=== PATIENT | female | born 1970 | race American Indian/Alaskan Native ===

== ENCOUNTER 2016-12-08 10:08 | Inpatient (IN) | payer SELFPAY ==
[2016-12-08 10:58] LABS: Bilirubin,Urine NEG (Negative); Blood,Urine LG (Negative); Ketones,Urine NEG (Negative); Leukocyte Esterase,Urine NEG (Negative); Nitrite,Urine NEG (Negative); Urobilinogen,Urine < 2.0 mg/dL (<2.0)
[2016-12-08 10:59] LABS: RBC,Urine > 182.0 /HPF (0.0-6.0)
[2016-12-08 11:22] LABS: Eosinophils % (Auto) 6.4 % (0.0-4.3); Mean Corpuscular HGB Conc 29 % (30-34); Platelet Count 374 K/mm3 (140-440); Red Blood Count 4.57 M/mm3 (3.65-5.03); White Blood Count 5.7 K/mm3 (4.5-11.0)
[2016-12-08 11:26] LABS: Hemoglobin 7.5 gm/dl (10.1-14.3); Mean Corpuscular Hemoglobin 16 pg (28-32); Mean Corpuscular Volume 57 fl (79-97); Red Cell Distribution Width 21.7 % (13.2-15.2)
[2016-12-08] MEDS ORDERED: NORCO 5/325 PO ONE (21:07)
[2016-12-08] MEDS ORDERED: TORADOL IV ONE (21:07)
--- NOTE | 2016-12-08 21:55 | Ultrasound Report ---
FINAL REPORT PROCEDURE: US PELVIC LIMITED TECHNIQUE: Real-time transabdominal sonography in multiple planes of pelvis for a focused or limited evaluation was performed with image documentation. CPT 14929 HISTORY: vag bleeding COMPARISON: No prior studies are available for comparison. FINDINGS: Uterus measures 12 x 6.5 x 8.5 centimeters. Endometrium measures 11 millimeters. There is no endometrial fluid. There is a left posterior fibroid measuring 4.3 centimeters. The ovaries are not identified. There is no free pelvic fluid. IMPRESSION: Uterine fibroid. Ovaries are not seen. There is no free pelvic fluid.
--- NOTE | 2016-12-08 22:03 | Ultrasound Report ---
FINAL REPORT PROCEDURE: US TRANSVAGINAL TECHNIQUE: Real-time transvaginal sonography in multiple planes of the pelvis was performed with image documentation. This examination was performed without Doppler. Vascular abnormalities, including ovarian torsion, will not be detectable without Doppler evaluation. CPT 56872 HISTORY: vag bleeding COMPARISON: No prior studies are available for comparison. FINDINGS: UTERUS Size: 12 x 6.5 x 8.5 cm. Endometrial thickness: 11 mm. Orientation: anteverted. Cervix: Normal. Fibroids/masses: Posterior left lateral fibroid measuring 4.3 centimeters.. Ovaries are not identified. Pelvic fluid: None. Other: None. IMPRESSION: Uterine fibroid as described. Ovaries are not seen. There is no free fluid..
[2016-12-08] MEDS ORDERED: NACL 0.9% 500 ML 500 ML IV ONE (22:52)
[2016-12-08] MEDS ORDERED: VIBRAMYCIN PO ONE (22:59)
--- NOTE | 2016-12-08 23:01 | Emergency Department Report ---
ED Female HPI - General Chief complaint: Vaginal Bleeding Stated complaint: HEADACHE/FATIGUE Time Seen by Provider: 12/08/16 20:41 Source: patient Mode of arrival: Ambulatory Limitations: No Limitations - History of Present Illness Initial comments: 46-year-old female with past med history of iron deficiency anemia requiring blood transfusions presents to Hospital complaints of vaginal bleeding 15 days. He was initially spotting then it improved and then increased again over the last several days. Patient used 6 pads today. She complains of mild cramping lower abdominal pain. Patient also complains of symptoms of a sinus infection. Patient states she's had sinus infections in the past and this is similar. She complains of pain to the right side of her forehead, face, extending to her teeth in the ear. Symptoms are moderate, constant, worse with palpation. Postnasal drainage worse with lying supine. No fever report. Patient also complains of light sensitivity. Denies history of migraine. - Related Data Home Medications Medication Instructions Recorded Confirmed Last Taken No Known Home Medications [No 12/09/16 12/09/16 Unknown Reported Home Medications] Allergies Allergy/AdvReac Type Severity Reaction Status Date / Time amoxicillin [Amoxicillin] Allergy Rash Verified 12/19/15 17:48 ED Review of Systems ROS: Stated complaint: HEADACHE/FATIGUE Other details as noted in HPI Comment: All other systems reviewed and negative Other: Constitutional: No fevers chills or weight loss Eyes: No eye pain visual changes or discharge ENT: as per hpi Neck: Denies pain Respiratory: Denies cough wheezing Cardiovascular: Denies chest pain, palpitations, syncope GI: Denies nausea, vomiting, diarrhea : Denies dysuria Musculoskeletal: Denies back pain, joint swelling Skin: Denies rash, lesions, erythema Neurologic: Denies numbness, weakness Psychiatric: Denies suicidal ideation, hallucinations ED Past Medical Hx - Past Medical History Hx Hypertension: No Hx Heart Attack/AMI: No Hx Diabetes: No Hx Liver Disease: No Hx Renal Disease: No Hx Seizures: No Hx Asthma: Yes Hx COPD: No Hx Tuberculosis: No Additional medical history: anemia with hx. of blood transfusions, Vertigo - Surgical History Hx Appendectomy: Yes Additional Surgical History: x 2, Right middle finger, D&C - Social History Smoking Status: Former Smoker Substance Use Type: Alcohol - Medications Home Medications: Home Medications Medication Instructions Recorded Confirmed Last Taken Type No Known Home Medications [No 12/09/16 12/09/16 Unknown History Reported Home Medications] ED Physical Exam - General Limitations: No Limitations - Other Other exam information: General: No limitations, patient is alert in no acute distress Head exam: Atraumatic, normocephalic Eyes exam: Normal appearance, pupils equal reactive to light, extraocular movements intact ENT: Moist mucous membrane, normal oropharynx. Right frontal and maxillary sinus tenderness. Neck exam: Normal inspection, full range of motion, no meningismus nontender Respiratory exam: Clear to auscultation bilateral, no wheezes, rales, crackles Cardiovascular: Normal rate and rhythm, normal heart sounds Abdomen: Soft, nondistended, mild suprapubic discomfort, with normal bowel sounds, no rebound, or guarding Extremity: Full range of motion normal inspection no deformity Back: Normal Inspection, full range of motion, no tenderness Neurologic: Alert, oriented x3, cranial nerves intact, no motor or sensory deficit Psychiatric: normal affect, normal mood Skin: Warm, dry, intact ED Course Vital Signs 12/08/16 12/08/16 12/08/16 10:21 21:05 21:46 Temperature 98.5 F Pulse Rate 83 72 Respiratory 16 12 20 Rate Blood Pressure 169/90 O2 Sat by Pulse 100 100 Oximetry 12/08/16 12/08/16 12/08/16 22:00 22:12 22:14 Temperature Pulse Rate 72 Respiratory 21 18 18 Rate Blood Pressure 160/79 O2 Sat by Pulse 100 Oximetry 12/08/16 12/08/16 12/08/16 22:30 23:00 23:30 Temperature Pulse Rate 70 68 74 Respiratory 18 18 15 Rate Blood Pressure 132/64 124/61 132/66 O2 Sat by Pulse 100 100 100 Oximetry 12/09/16 12/09/16 00:00 00:33 Temperature Pulse Rate 71 Respiratory 14 18 Rate Blood Pressure 123/63 O2 Sat by Pulse 100 100 Oximetry - Reevaluation(s) Reevaluation #1: 12/09/16 01:02 Pain improved with Toradol and [place] - Consultations Consultation #1: 12/08/16 22:[address] Skye Costa consulted. Bridger romero pt ED Medical Decision Making - Lab Data Result diagrams: 12/08/16 11:10 Lab Results 02/10/17 02/10/17 02/10/17 Range/Units 10:40 11:10 11:10 WBC 5.7 (4.5-11.0) K/mm3 RBC 4.57 (3.65-5.03) M/mm3 Hgb 7.5 L (10.1-14.3) gm/dl Hct 26.0 L (30.3-42.9) % MCV 57 L (79-97) fl MCH 16 L (28-32) pg MCHC 29 L (30-34) % RDW 21.7 H (13.2-15.2) % Plt Count 374 (140-440) K/mm3 Lymph % (Auto) 43.4 H (13.4-35.0) % [place] % (Auto) 6.5 (0.0-7.3) % Eos % (Auto) 6.4 H (0.0-4.3) % Baso % (Auto) 1.0 (0.0-1.8) % Lymph # 2.5 (1.2-5.4) K/mm3 [place] # 0.4 (0.0-0.8) K/mm3 Eos # 0.4 (0.0-0.4) K/mm3 Baso # 0.1 (0.0-0.1) K/mm3 Seg Neutrophils % 42.7 (40.0-70.0) % Seg Neutrophils # 2.5 (1.8-7.7) K/mm3 Iron (37-170) ug/dL TIBC (250-450) mcg/dL % Saturation % Transferrin (192-382) mg/dl HCG, Quant < 2 (0-4) mIU/mL Urine Color Yellow (Yellow) Urine Turbidity Cloudy (Clear) Urine pH 7.0 (5.0-7.0) Ur Specific [place] 1.019 (1.003-1.030) Urine Protein 30 mg/dl (Negative) mg/dL Urine Glucose (UA) Neg (Negative) mg/dL Urine Ketones Neg (Negative) mg/dL Urine Blood Lg (Negative) Urine Nitrite Neg (Negative) Urine Bilirubin Neg (Negative) Urine Urobilinogen < 2.0 (<2.0) mg/dL Ur Leukocyte Esterase Neg (Negative) Urine WBC (Auto) 1.0 (0.0-6.0) /HPF Urine RBC (Auto) > 182.0 (0.0-6.0) /HPF U Epithel Cells (Auto) 1.0 (0-13.0) /HPF Blood Type Antibody Screen Crossmatch 12/08/16 12/08/16 Range/Units 11:10 11:10 WBC (4.5-11.0) K/mm3 RBC (3.65-5.03) M/mm3 Hgb (10.1-14.3) gm/dl Hct (30.3-42.9) % MCV (79-97) fl MCH (28-32) pg MCHC (30-34) % RDW (13.2-15.2) % Plt Count (140-440) K/mm3 Lymph % (Auto) (13.4-35.0) % [place] % (Auto) (0.0-7.3) % Eos % (Auto) (0.0-4.3) % Baso % (Auto) (0.0-1.8) % Lymph # (1.2-5.4) K/mm3 [place] # (0.0-0.8) K/mm3 Eos # (0.0-0.4) K/mm3 Baso # (0.0-0.1) K/mm3 Seg Neutrophils % (40.0-70.0) % Seg Neutrophils # (1.8-7.7) K/mm3 Iron 13 L (37-170) ug/dL TIBC 466 H (250-450) mcg/dL % Saturation 2.79 % Transferrin 372 (192-382) mg/dl HCG, Quant (0-4) mIU/mL Urine Color (Yellow) Urine Turbidity (Clear) Urine pH (5.0-7.0) Ur Specific [place] (1.003-1.030) Urine Protein (Negative) mg/dL Urine Glucose (UA) (Negative) mg/dL Urine Ketones (Negative) mg/dL Urine Blood (Negative) Urine Nitrite (Negative) Urine Bilirubin (Negative) Urine Urobilinogen (<2.0) mg/dL Ur Leukocyte Esterase (Negative) Urine WBC (Auto) (0.0-6.0) /HPF Urine RBC (Auto) (0.0-6.0) /HPF U Epithel Cells (Auto) (0-13.0) /HPF Blood Type O POSITIVE Antibody Screen Negative Crossmatch See Detail - Radiology Data Radiology results: report reviewed (us transvag/pelvic: uterin fibroid) - Medical Decision Making Patient requires admission to the hospital and blood transfusion for symptomatic anemia. 1 unit ordered. LINER MACHINE OPERATOR HELPER has been consulted and will evaluate patient for admission. patient also has right-sided facial tenderness or be treated for sinusitis (Doxycline.) Patient may also have migraines but headache has been intermittent for a week and worse with pressure to his sinuses and she complains of sinus drainage. - Differential Diagnosis fibroids, menorrhagia, anemia, , dental caries, sinusitis, migrain Critical Care Time: No Critical care attestation.: If time is entered above; I have spent that time in minutes in the direct care of this critically ill patient, excluding procedure time. ED Disposition Clinical Impression: Vaginal bleeding, Iron deficiency anemia, Symptomatic anemia, Sinusitis, Uterine fibroid Disposition: OP ADMITTED IP TO THIS HOSP Is pt being admited?: Yes Condition: Stable Time of Disposition: 22:57 (Dr Hanson/hosp)
[2016-12-09] MEDS ORDERED: VIBRAMYCIN ONE (00:07)
[2016-12-09] MEDS ORDERED: DULCOLAX PR PRN (01:58)
[2016-12-09] MEDS ORDERED: TYLENOL PO PRN (01:58)
[2016-12-09] MEDS ORDERED: MILK OF MAGNESIA PO PRN (01:58)
[2016-12-09] MEDS ORDERED: NACL 0.9% 1000 ML 1,000 ML IV SCH (02:00)
--- NOTE | 2016-12-09 02:05 | History and Physical Report ---
History of Present Illness Date of examination: 12/09/16 Date of admission: 12/08/16 23:14 Chief complaint: vaginal bleeding History of present illness: This is a 46-year-old female with past med history of iron deficiency anemia requiring blood transfusions presents to Hospital complaints of vaginal bleeding 15 days with associated lightheadedness. SHe was initially spotting then it improved and then her flow increased again over the last several days. Patient used 6 pads today. She has associated mild cramping lower abdominal pain. Patient also complains of symptoms of a sinus infection. Patient states she's had sinus infections in the past and this is similar. She complains of pain to the right side of her forehead, face, extending to her teeth in the ear. Symptoms are moderate, constant, worse with palpation. Postnasal drainage worse with lying supine. No fever report. Patient also complains of light sensitivity. Denies history of migraine. Past medical History: None Past surgical History: Status post 2, appendectomy Social History: Lives with family, denies any smoking, drinking and elicit drug abuse. Family History: Significant for hypertension Review of System: Constitutional: no fever, no chills, no weight loss Ears, eyes, nose, mouth and throat: + nasal congestion, + nasal discharge, + sinus pressure, no vision change, no red eye. Neck: No neck pain or rigidity. Cardiovascular: No chest pain, no orthopnea, no palpitations, no leg swelling Respiratory: No shortness of breath, no cough, no congestion, no wheezing Gastrointestinal: + crampy lower abdominal pain, no nausea, no vomiting Genitourinary : no dysuria, no hematuria Musculoskeletal: no joint swelling or muscle ache Integumentary: no rash, no pruritis Neurological: no parathesias, no numbness, no tingling Endocrine: no cold or heat intolerance, no polyuria or polydipsia Hematologic/Lymphatic: no easy bruising, no gland swelling Allergic/Immunologic: no urticaria, no angioedema. Medications and Allergies Allergies Allergy/AdvReac Type Severity Reaction Status Date / Time amoxicillin [Amoxicillin] Allergy Rash Verified 12/19/15 17:48 Home Medications Medication Instructions Recorded Confirmed Last Taken Type Azithromycin [Zithromax TAB] 500 mg PO QDAY #5 tablet 12/09/16 Unknown Rx Ferrous Sulfate [Feosol 325 MG tab] 325 mg PO BID #60 tablet 12/09/16 Unknown Rx traMADol [Ultram] 50 mg PO Q6HR PRN #20 tablet 12/09/16 Unknown Rx Exam - Physical Exam Narrative exam: GENERAL: This is well-developed obese -[place] female lying on bed appeared to be in no discomfort. HEENT: Normocephalic. Atraumatic. Extraocular motions are intact. No conjunctival congestion or icterus. Patient has moist mucous membranes. External auditory canal and nares patent bilaterally. Right maxillary tenderness. NECK: Supple. Trachea midline. No JVD, thyromagaly or lymphadenopathy. CHEST/LUNGS: Clear to auscultated bilaterally. There is no respiratory distress noted, breathing nonlabored. No wheezes crackles or rhonchi. HEART/CARDIOVASCULAR: Regular in rate and rhythm. PMI at the apex. There is no gallop rub or murmur. ABDOMEN: Abdomen is soft, + pelvic tenderness. Patient has normal bowel sounds. There is no abdominal distention. No organomagaly or rigidity. SKIN: There is no rash, no erythrema. There is no diaphoresis. Warm and dry. NEUROLOGY: The patient is awake, alert, and oriented. The patient is cooperative. The patient has normal speech. No focal motor deficit. MUSCULOSKELETAL: No joint effusion or tenderness. Muscle strength equal bilaterally. No muscle wasting. EXTRIMITY: No edema, cyanosis or clubbing. PSYCH: No depression or anxiety noted. Cooperative. - Constitutional Vitals: Temp Pulse Resp BP Pulse Ox 98.5 F 69 13 132/64 90 12/08/16 10:21 12/09/16 01:00 12/09/16 01:00 12/09/16 01:32 12/09/16 01:32 Results - Labs CBC & Chem 7: 12/09/16 10:00 Labs: Laboratory Last Values WBC 5.7 K/mm3 (4.5-11.0) 12/08/16 11:10 RBC 4.57 M/mm3 (3.65-5.03) 12/08/16 11:10 Hgb 7.5 gm/dl (10.1-14.3) L 12/08/16 11:10 Hct 26.0 % (30.3-42.9) L 12/08/16 11:10 MCV 57 fl (79-97) L 12/08/16 11:10 MCH 16 pg (28-32) L 12/08/16 11:10 MCHC 29 % (30-34) L 12/08/16 11:10 RDW 21.7 % (13.2-15.2) H 12/08/16 11:10 Plt Count 374 K/mm3 (140-440) 12/08/16 11:10 Lymph % (Auto) 43.4 % (13.4-35.0) H 12/08/16 11:10 [place] % (Auto) 6.5 % (0.0-7.3) 12/08/16 11:10 Eos % (Auto) 6.4 % (0.0-4.3) H 12/08/16 11:10 Baso % (Auto) 1.0 % (0.0-1.8) 12/08/16 11:10 Lymph # 2.5 K/mm3 (1.2-5.4) 12/08/16 11:10 [place] # 0.4 K/mm3 (0.0-0.8) 12/08/16 11:10 Eos # 0.4 K/mm3 (0.0-0.4) 12/08/16 11:10 Baso # 0.1 K/mm3 (0.0-0.1) 12/08/16 11:10 Seg Neutrophils % 42.7 % (40.0-70.0) 12/08/16 11:10 Seg Neutrophils # 2.5 K/mm3 (1.8-7.7) 12/08/16 11:10 Iron 13 ug/dL (37-170) L 12/08/16 11:10 TIBC 466 mcg/dL (250-450) H 12/08/16 11:10 % Saturation 2.79 % 12/08/16 11:10 Transferrin 372 mg/dl (192-382) 12/08/16 11:10 HCG, Quant < 2 mIU/mL (0-4) 12/08/16 11:10 Urine Color Yellow (Yellow) 12/08/16 10:40 Urine Turbidity Cloudy (Clear) 12/08/16 10:40 Urine pH 7.0 (5.0-7.0) 12/08/16 10:40 Ur Specific [place] 1.019 (1.003-1.030) 12/08/16 10:40 Urine Protein 30 mg/dl mg/dL (Negative) 12/08/16 10:40 Urine Glucose (UA) Neg mg/dL (Negative) 12/08/16 10:40 Urine Ketones Neg mg/dL (Negative) 12/08/16 10:40 Urine Blood Lg (Negative) 12/08/16 10:40 Urine Nitrite Neg (Negative) 12/08/16 10:40 Urine Bilirubin Neg (Negative) 12/08/16 10:40 Urine Urobilinogen < 2.0 mg/dL (<2.0) 12/08/16 10:40 Ur Leukocyte Esterase Neg (Negative) 12/08/16 10:40 Urine WBC (Auto) 1.0 /HPF (0.0-6.0) 12/08/16 10:40 Urine RBC (Auto) > 182.0 /HPF (0.0-6.0) 12/08/16 10:40 U Epithel Cells (Auto) 1.0 /HPF (0-13.0) 12/08/16 10:40 Blood Type O POSITIVE 12/08/16 11:10 Antibody Screen Negative 12/08/16 11:10 Crossmatch See Detail 12/08/16 11:10 Assessment and Plan Assessment and plan: Severe symptomatic anemia due to menorrhagia Menorrhagia with fibroid uterus Right maxillary sinusitis Morbid obesity due to excessive caloric Plan: Admit to medicine Consult FINISH INSPECTOR transfuse 1 unit of packed RBC Monitor H&H Placed on Zithromax for sinusitis Supportive care It took me about 45 minutes for initial care of this patient including history and physical, reviewing initial lab results and ER documents, placing admission orders, bedside counseling and coordination of care. Advance Directives: Yes VTE prophylaxis?: Mechanical Plan of care discussed with patient/family: Yes
[2016-12-09] MEDS: ZOFRAN IV PRN ×2 (02:53→10:32)
[2016-12-09] MEDS: NORCO 5/325 PO PRN ×2 (04:43→12:46)
[2016-12-09] MEDS ORDERED: NACL 0.9% 500 ML 500 ML IV ONE (05:00)
[2016-12-09] MEDS ORDERED: FEOSOL PO SCH (10:00)
[2016-12-09] MEDS ORDERED: LOVENOX SUB-Q SCH (10:00)
[2016-12-09] MEDS ORDERED: COLACE PO SCH (10:00)
[2016-12-09] MEDS ORDERED: PEPCID PO SCH (10:00)
[2016-12-09] MEDS ORDERED: ZITHROMAX PO SCH (10:00)
[2016-12-09 10:29] LABS: Eosinophils % (Auto) 6.6 % (0.0-4.3); Mean Corpuscular HGB Conc 29 % (30-34); Platelet Count 343 K/mm3 (140-440); Red Blood Count 4.51 M/mm3 (3.65-5.03); White Blood Count 6.5 K/mm3 (4.5-11.0)
[2016-12-09 10:55] LABS: Hematocrit 26.7 % (30.3-42.9); Hemoglobin 7.8 gm/dl (10.1-14.3); Mean Corpuscular Hemoglobin 17 pg (28-32); Mean Corpuscular Volume 59 fl (79-97); Red Cell Distribution Width 23.7 % (13.2-15.2)
--- NOTE | 2016-12-09 12:42 | Discharge Summary ---
Providers - Providers Date of Admission: 12/08/16 23:14 Date of discharge: 12/09/16 Attending physician: BLANQUITA MARIEE MD Primary care physician: [employer] [employer] Hospitalization Reason for admission: vaginal bleed Condition: Stable Hospital course: Patient is a 46 yo LMP 15 days ago presented to the ER with for lightheadness dizziness and some sinus issues. She is admitted to medicine service for blood transusion for chronic anemia. She reports large prolonged period and has hx of heavy bleeding without seeing a physician in 3 years. She has had novausure in the past and has not had a fibroid in the past to her knowledge. she changes a pad every 1 hr on period and this period to date has lasted longer for a duration of 15 days. She is not taking iron supplements and she has had transfusions in her past. She denies any medical problems and denies any medication new or old that she is taking. She also reports a sinus infection similar to one in the past before. She reports frontal headache. A specimen 58 year denies any dental problems. She reports worsening postnasal drainage at night especially when lying supine. Her headache she relates a history of intensity with sensitivity to lights. She denies any history of migraines. She was started on antibiotics. She did tolerate a blood transfusion. She was sent by PLACEMENT MANAGER in the hospital with recommendation for Depo-Provera, IUD, hysterectomy (the patient states is a curse of her family would not do a hysterectomy)the patient will rather have a follow-up with them in 6 weeks for further evaluation. She does understand that she needs an ultrasound in 6 weeks to ensure no progression of the solitary fibroid noted on ultrasound. Recommendation to increase her leafy vegetable intake vitamin C and iron. And on maintenance to continue Pap smears every 3-5 years. Discharge diagnosis Severe symptomatic anemia due to menorrhagia Menorrhagia with fibroid uterus Right maxillary sinusitis Morbid obesity due to excessive caloric Disposition: DISCHARGED TO HOME OR SELFCARE Time spent for discharge: 35 mins Core Measure Documentation - Palliative Care Palliative Care/ Comfort Measures: Not Applicable - Core Measures Any of the following diagnoses?: none - VTE Discharge Requirements Deep Vein Thrombosis/Pulmonary Embolism Present on Admission: No Exam - Physical Exam Narrative exam: VITAL SIGNS: Reviewed. GENERAL: The patient appeared well nourished and normally developed. Vital signs as documented. HEAD: No signs of head trauma. EYES: Pupils are equal. Extraocular motions intact. EARS: Hearing grossly intact. MOUTH: Oropharynx is normal. NECK: No adenopathy, no JVD. CHEST: Chest with clear breath sounds bilaterally. No wheezes, rales, or rhonchi. CARDIAC: Regular rate and rhythm. S1 and S2, without murmurs, gallops, or rubs. VASCULAR: No Edema. Peripheral pulses normal and equal in all extremities. ABDOMEN: GravidUs abdomen Soft, without detectable tenderness. No rebound or guarding, and no masses palpated. Bowel Sounds normal. MUSCULOSKELETAL: Good range of motion of all major joints. Extremities without clubbing, cyanosis or edema. NEUROLOGIC EXAM: Alert and oriented x 3. No focal sensory or strength deficits. Speech normal. Follows commands. PSYCHIATRIC: Mood normal. SKIN: No rash or lesions. - Constitutional Vitals: Temp Pulse Resp BP Pulse Ox 97.9 F 73 18 107/58 100 12/09/16 06:35 12/09/16 06:35 12/09/16 06:35 12/09/16 06:35 12/09/16 06:35 Plan Activity: advance as tolerated Diet: regular Additional Instructions: Must get an Pelvic ultrasound in 6 weeks Follow up with: MAKAYLA PHILLIP MD [Primary Care Provider] - 7 Days KATEY FOX MD [Referring] - 7 Days Forms: Work/School Release Form Prescriptions: Azithromycin [Zithromax TAB] 500 mg PO QDAY #5 tablet Ferrous Sulfate [Feosol 325 MG tab] 325 mg PO BID #60 tablet traMADol [Ultram] 50 mg PO Q6HR PRN #20 tablet PRN Reason: Pain
--- NOTE | 2016-12-09 12:48 | Consultation ---
History of Present Illness Consult date: 12/09/16 Reason for consult: menorrhagia History of present illness: 46 yo LMP 15 days ago here for lightheadness dizziness and some sinus issues. She is admitted to medicine service for blood transusion for chronic anemia. She reports stopping period and has hx of heavy bleeding without seeing a physician in 3 years. She has had novausure in the past and has not had a fibroid in the past to her knowledge. she changes a pad every 1 hr on period and this period to date has lasted longer for a duration of 15 days. She is not taking iron supplements and she ahs had transfusions in her past. She denies any medical problems and denies any medication new or old that she is taking. Past History Past Medical History: no pertinent history Past Surgical History: section (x3) [employer] History: chlamydia, fibroids, gonorrhea, herpes Family/Genetic History: diabetes, heart disease, hypertension Social history: no significant social history, single - Obstetrical History : 4 Medications and Allergies Allergies Allergy/AdvReac Type Severity Reaction Status Date / Time amoxicillin [Amoxicillin] Allergy Rash Verified 12/19/15 17:48 Home Medications Medication Instructions Recorded Confirmed Last Taken Type Azithromycin [Zithromax TAB] 500 mg PO QDAY #5 tablet 12/09/16 Unknown Rx Ferrous Sulfate [Feosol 325 MG tab] 325 mg PO BID #60 tablet 12/09/16 Unknown Rx Active Meds: Active Medications Acetaminophen (Tylenol) 650 mg PO Q4H PRN PRN Reason: Pain MILD(1-3)/Fever >100.5/YATES Last Admin: 12/09/16 08:28 Dose: 650 mg Acetaminophen/Hydrocodone Bitart ([place] 5/325) 2 each PO Q6H PRN PRN Reason: Pain, Moderate (4-6) Last Admin: 12/09/16 04:43 Dose: 1 each Azithromycin (Zithromax) 500 mg PO QDAY [facility] Last Admin: 12/09/16 09:12 Dose: 500 mg Bisacodyl (Dulcolax) 10 mg [place] QDAY PRN PRN Reason: Constipation unrelieved by MOM Docusate Sodium (Colace) 100 mg PO BID [facility] Last Admin: 12/09/16 09:12 Dose: 100 mg Famotidine (Pepcid) 20 mg PO BID [facility] Last Admin: 12/09/16 09:13 Dose: 20 mg Ferrous Sulfate (Feosol) 325 mg PO BID [facility] Last Admin: 12/09/16 09:13 Dose: 325 mg Sodium Chloride (Nacl 0.9% 1000 Ml) 1,000 mls @ 100 mls/hr IV DIRECT [facility] Last Admin: 12/09/16 03:13 Dose: 100 mls/hr Magnesium Hydroxide (Milk Of Magnesia) 30 ml PO Q4H PRN PRN Reason: Constipation Ondansetron HCl (Zofran) 4 mg IV Q8H PRN PRN Reason: N/V unrelieved by Reglan Last Admin: 12/09/16 10:32 Dose: 4 mg Review of Systems All systems: negative Constitutional: fatigue, weakness, no weight loss, no fever, no chills, no sweats Eyes: deferred Ears, nose, mouth and throat: deferred Cardiovascular: lightheadedness, no chest pain, no orthopnea, no palpitations, no edema, no syncope Respiratory: no shortness of breath, no wheezing Breasts: deferred Gastrointestinal: no abdominal pain, no nausea, no vomiting, no diarrhea, no constipation Genitourinary: normal appearance, vaginal bleeding (decreased and not currently bleeding ), no vaginal discharge, no pelvic pain, no genital sores Integumentary: deferred Neurological: weakness, syncope - Vital Signs Vital signs: Vital Signs Temp Pulse Resp BP Pulse Ox 98.5 F 83 16 169/90 100 12/08/16 10:21 12/08/16 10:21 12/08/16 10:21 12/08/16 10:21 12/08/16 10:21 Temp Pulse Resp BP Pulse Ox 97.9 F 73 18 107/58 100 12/09/16 06:35 12/09/16 06:35 12/09/16 06:35 12/09/16 06:35 12/09/16 06:35 - Physical Exam Breasts: Positive: normal Cardiovascular: Regular rate, Normal S1, Normal S2 Lungs: Positive: Clear to auscultation, Normal air movement Abdomen: Positive: normal appearance, soft, normal bowel sounds. Negative: distention, tenderness, guarding, hernia Genitourinary (Female): Positive: normal external genitalia, normal perenium Vulva: both: normal Vagina: Positive: normal moisture. Negative: discharge, ulceration Cervix: Negative: lesion, discharge Uterus: Positive: enlarged (12 weeks size), nodular Adnexa: both: normal Anus/Rectum: Positive: normal perianal skin Extremities: Positive: normal Deep Tendon Reflex Grade: Normal +2 Results Result Diagrams: 12/09/16 10:00 Abnormal lab results 12/09/16 Range/Units 10:00 Hgb 7.8 L (10.1-14.3) gm/dl Hct 26.7 L (30.3-42.9) % MCV 59 L (79-97) fl MCH 17 L (28-32) pg MCHC 29 L (30-34) % RDW 23.7 H (13.2-15.2) % Lymph % (Auto) 41.3 H (13.4-35.0) % [place] % (Auto) 8.8 H (0.0-7.3) % Eos % (Auto) 6.6 H (0.0-4.3) % All other labs normal. Ultrasound: report reviewed Assessment and Plan A/P HD#1 chronic anemia iron deficient anemia, fibroids 1. Menorrhagia- recommend depo, iud, hysterectiomy 2. Fibroids- hx of no previous fibroids per patient would recommned that she has f/u of US in 6 weeks to 3 months for progression of solitary fibroid 3. Disucssed [place] procedure as patient is adament against hysterectomy " curse on family" for fibroids that are solitary [place] acceptable 4. Increase in leafy veg , iron, vit c 5. discussed routine health maintenance with regular exam needs pap every 3-5 years ( patient reports patp 2 years ago, mammogram annually 6. Needs f/u with assistant hvac mechanic immediately to continue management and treatment
[2016-12-09 13:41] VITALS: BP 114/57
== END 2016-12-09 14:05 | disposition home or self-care (01) | DRG 760 ==
LOC: ED 10:08 → 3A 23:14
PROVIDERS: ADMIT Internal Medicine; ATTEND Internal Medicine
PROC: 30233N1 Transfusion of Nonautologous Red Blood Cells into Peripheral Vein, Percutaneous Approach (ICD-10-PCS; principal; 2016-12-09)
DX: D25.9 Leiomyoma of uterus, unspecified (principal); Z68.41 Body mass index [BMI] 40.0-44.9, adult; N93.9 Abnormal uterine and vaginal bleeding, unspecified; N92.0 Excessive and frequent menstruation with regular cycle; D50.9 Iron deficiency anemia, unspecified; J32.9 Chronic sinusitis, unspecified; E66.01 Morbid (severe) obesity due to excess calories; J45.909 Unspecified asthma, uncomplicated; Z90.49 Acquired absence of other specified parts of digestive tract; Z87.891 Personal history of nicotine dependence; Z82.49 Family history of ischemic heart disease and other diseases of the circulatory system; Z83.3 Family history of diabetes mellitus; Z88.0 Allergy status to penicillin
CPT/HCPCS: 36415; 76830; 76857; 81001; 83550; 84702; 85025; 86850; 86900; 86901; 86920; 96374; J1885; J2405; J7030; J7040; P9016

== ENCOUNTER 2018-04-19 09:00 | Day surgery (SDC) | payer OTHER ==
--- NOTE | 2018-04-19 09:12 | Short Stay Summary ---
Short Stay Documentation Date of service: 04/19/18 Narrative H&P: Pt is a 47yo BF LMP 04/11/18 presents for a Hysteroscopy with D&C. She was unable to tolerate the endometrial biopsy in the office. - History Principal diagnosis: Uterine fibroids; Menorrhagia H&P: obtained from office Past Medical History: anemia, other (asthma) Past Surgical History: appendectomy, Social history: no significant social history - Allergies and Medications Current Medications: Allergies amoxicillin [Amoxicillin] Allergy (Verified 04/17/18 16:04) Rash Home Medications Medication Instructions Recorded Confirmed Last Taken Type traMADol [Ultram] 50 mg PO Q6HR PRN #20 tablet 12/09/16 04/17/18 Unknown Rx Active Medications Gentamicin Sulfate (Garamycin) 200 mg 1.5 mg/kg (200 mg) IV PREOP LESLEY; Protocol Clindamycin HCl (Cleocin 600 Mg/50 Ml) 600 mg in 50 mls @ 100 mls/hr IV PREOP NR; Protocol - Physical exam General appearance: no acute distress Integumentary: no rash HEENT: Atraumatic Lungs: Clear to auscultation Breasts: deferred Heart: Regular rate Gastrointestinal: normal Female Genitourinary: masses Rectal Exam: deferred Extremities: No edema Neurological: Normal gait, Normal speech - Brief post op/procedure progress note Date of procedure: 04/19/18 Pre-op diagnosis: Uterine fibroids Post-op diagnosis: same Procedure: 1. Hysteroscopy 2. Dilatation and curettage Anesthesia: MAC Findings: A 14-16 week size uterus with endometrial adhesions. Scant endometrial tissue obtained. Surgeon: CONRAD FOX Estimated blood loss: minimal Pathology: list (endometrial curettings) Specimen disposition: to lab Condition: stable - Hospital course Hospital course: Unremarkable - Disposition Condition at discharge: Good Disposition: DC-01 TO HOME OR SELFCARE - Discharge Diagnoses (1) Uterine fibroid Status: Acute Qualifiers: Uterine leiomyoma location: intramural, submucous, and subserous Qualified Code(s): D25.1 - Intramural leiomyoma of uterus; D25.0 - Submucous leiomyoma of uterus; D25.2 - Subserosal leiomyoma of uterus Short Stay Discharge Plan Activity: no restrictions Diet: regular Follow up with: MAKAYLA PHILLIP MD [Primary Care Provider] - 7 Days CONRAD FOX MD [Staff Physician] - 14 Days Prescriptions: HYDROcodone/APAP 5-325 [[place] 5/325] 1 each PO Q6HR PRN #20 tablet PRN Reason: Pain
[2018-04-19] MEDS ORDERED: GARAMYCIN IV SCH (09:15)
[2018-04-19] MEDS ORDERED: XYLOCAINE MPF 2% ONE (09:52)
[2018-04-19] MEDS ORDERED: SUBLIMAZE ONE (09:52)
[2018-04-19] MEDS ORDERED: DIPRIVAN 10 MG/ML IV ONE (09:53)
[2018-04-19] MEDS ORDERED: DECADRON ONE (09:57)
[2018-04-19] MEDS ORDERED: ZOFRAN ONE (09:57)
[2018-04-19] MEDS ORDERED: CLEOCIN 600 MG/50 mL 600 MG/50 ML BAG IV NR (10:00)
[2018-04-19] MEDS ORDERED: GARAMYCIN 200 MG in NACL 0.9% 100 ML IV NR (10:00)
[2018-04-19] MEDS ORDERED: ZOFRAN IV PRN (10:28)
[2018-04-19] MEDS ORDERED: DILAUDID IV PRN (10:28)
--- NOTE | 2018-04-19 10:34 | Anesthesia Day of Surgery ---
Anesthesia Day of Surgery - Day of Surgery Patient Examined: Yes Patient H&P Reviewed: Yes Patient is NPO: Yes
--- NOTE | 2018-04-19 10:34 | Anesthesia Consultation ---
Anesthesia Consult and Med Hx Date of service: 04/19/18 - Airway Anesthetic Teeth Evaluation: Good ROM Head & Neck: Adequate Mental/Hyoid Distance: Adequate Mallampati Class: Class II Intubation Access Assessment: Probably Good - Pulmonary Exam CTA: Yes - Cardiac Exam Cardiac Exam: RRR - Pre-Operative Health Status ASA Pre-Surgery Classification: ASA3 Proposed Anesthetic Plan: General - Pulmonary Hx Asthma: Yes (Haven't used meds "in a while") COPD: No Hx Pneumonia: Yes - Cardiovascular System Hx Hypertension: No Hx Heart Attack/AMI: No - Central Nervous System Hx Seizures: No CVA: No Hx Back Pain: Yes Hx Psychiatric Problems: Yes - Endocrine Hx Renal Disease: No Hx Liver Disease: No Hx Hyperthyroidism: No - Hematic Hx Anemia: Yes - Other Systems Hx Alcohol Use: Yes (occas) Hx Cancer: No
[2018-04-19] MEDS ORDERED: VERSED IV NR (11:00)
[2018-04-19] MEDS ORDERED: LACTATED RINGERS 1,000 ML IV SCH ×2 (11:00)
[2018-04-19] MEDS ORDERED: TORADOL ONE (11:30)
[2018-04-19] MEDS ORDERED: NACL 0.9% IR ONE ×2 (11:31→11:32)
--- NOTE | 2018-04-19 11:58 | Operative Report ---
Operative Report Operative Report: PREOPERATIVE DIAGNOSIS: Uterine fibroids POSTOPERATIVE DIAGNOSIS: Same OPERATIVE PROCEDURE: 1. Hysteroscopy 2. Dilatation and curettage. SURGEON: Waqas Costa MD ANESTHESIA: Gen. mask ANESTHESIOLOGIST: Dr. West ESTIMATED BLOOD LOSS: 10 mL FINDINGS: A 14-16 week size uterus with scant endometrial tissue COMPLICATIONS: None COUNTS: Correct x3. PROCEDURE: After the patient was correctly identified as the patient, and after general anesthesia was administered, the patient was prepped and draped in the usual sterile fashion and placed in dorsal lithotomy position. First, the bladder was emptied using a straight catheter. Next, a speculum was placed in the vaginal vault and the anterior lip of the cervix was grasped using a single-tooth tenaculum. The uterus was sounded to 13 cm. The cervical os was sequentially dilated, and the hysteroscope was introduced into the cervical canal. There was noted to be endometrial adhesions. Sharp curettage was used to obtain scant endometrial tissue which was sent to pathology. After all the endometrial tissue was removed, the procedure was considered complete. All instruments were removed from the vagina. The patient tolerated the procedure well and was transferred to the recovery room in stable condition.
[2018-04-19] MEDS ORDERED: NORCO 5/325 PO ONE (13:01)
--- NOTE | 2018-04-19 13:08 | Post Anesthesia Evaluation ---
- Post Anesthesia Evaluation Patient Participated: Yes Airway Patent: Yes Stable Respiratory Function: Yes Nausea/Vomiting: No Temp > 96.8F: Yes Pain Manageable: Yes Adequeate Hydration: Yes Anesthesia Complications: No
[2018-04-19 14:58] VITALS: BP 142/79
== END 2018-04-19 14:05 | disposition home or self-care (01) ==
LOC: OR 09:00
PROVIDERS: ATTEND Obstetrics & Gynecology
DX: D25.9 Leiomyoma of uterus, unspecified (principal); K66.0 Peritoneal adhesions (postprocedural) (postinfection); J45.909 Unspecified asthma, uncomplicated; Z98.890 Other specified postprocedural states; Z88.1 Allergy status to other antibiotic agents
CPT/HCPCS: 58558; 81025; 88305; A4217; J1100; J1170; J1580; J1885; J2250; J2405; J2704; J3010; J7120

== ENCOUNTER 2019-08-21 18:11 | Emergency (ER) | payer SELFPAY ==
--- NOTE | 2019-08-21 19:54 | Emergency Department Report ---
Blank Doc - Documentation Documentation: 49 y/o c/o of vaginal bleeding and clots with pelvic pain. No dysuria. no fever . heavy pressure to pelvic region l. This initial assessment/diagnostic orders/clinical plan/treatment(s) is/are subject to change based on patient's health status, clinical progression and re-assessment by fellow clinical providers in the ED. Further treatment and workup at subsequent clinical providers discretion. Patient/guardians urged not to elope from the ED as their condition may be serious if not clinically assessed and managed. Initial orders include: Labs and US
[2019-08-21] MEDS ORDERED: NORCO 5/325 PO ONE (20:43)
[2019-08-21 22:46] LABS: Bacteria,Urine 1+ /HPF (Negative); Bilirubin,Urine NEG (Negative); Blood,Urine LG (Negative); Color,Urine Amber (Yellow); Mucus,Urine 3+ /HPF
[2019-08-21 23:06] LABS: HCG Qualitative,Urine Negative (Negative)
--- NOTE | 2019-08-21 23:25 | Emergency Department Report ---
ED Female HPI - General Chief complaint: Vaginal Bleeding Stated complaint: CLOTS PASSING/ABD EXTREME PAIN Time Seen by Provider: 08/21/19 19:50 Source: patient Mode of arrival: Ambulatory Limitations: No Limitations - History of Present Illness Initial comments: Reports hx of fibroids. not followed by [facility] since last year MD Complaint: vaginal bleeding -: week(s) Location: suprapubic Radiation: non-radiating Severity: mild Severity scale (0 -10): 2 Quality: cramping Consistency: intermittent Improves with: none Worsens with: none Are you Now?: No Associated Symptoms: vaginal bleeding, other (history chronic back pain). denies: vaginal discharge, abdominal pain, nausea/vomiting, fever/chills, headaches, loss of appetite, dysuria, hematuria, rash, seizure, shortness of breath, syncope, weakness - Related Data Previous Rx's Medication Instructions Recorded Last Taken Type traMADol [Ultram] 50 mg PO Q6HR PRN #20 tablet 12/09/16 Unknown Rx HYDROcodone/APAP 5-325 [[place] 1 each PO Q6HR PRN #20 tablet 04/19/18 Unknown Rx 5/325] Acetaminophen [Acetaminophen TAB] 500 mg PO Q4HR #18 tablet 08/21/19 Unknown Rx Allergies Allergy/AdvReac Type Severity Reaction Status Date / Time amoxicillin [Amoxicillin] Allergy Rash Verified 08/21/19 18:12 ED Review of Systems ROS: Stated complaint: CLOTS PASSING/ABD EXTREME PAIN Other details as noted in HPI Other: GENERAL: No weight change, fatigue, fever, chills, or night sweats SKIN: No changes in skin or hair, no itching, no rashes, no jaundice HEAD: No trauma, headache, or visual changes EYES: No blurriness, tearing, itching, acute visual loss, conjunctival discoloration, or scleral icterus EARS: No hearing loss, tinnitus, vertigo, or earache NOSE: No rhinorrhea, stuffiness, sneezing, itching, or epistaxis MOUTH: No bleeding gums, hoarseness, sore throat, or swelling CARDIAC: No new murmur, chest pain, palpitations, dyspnea on exertion, orthopnea, PND, or edema RESPIRATORY: No shortness of breath, wheeze, cough, sputum production, hemoptysis, pneumonia, asthma, bronchitis, or emphysema GI: No change in appetite, nausea, vomiting, dysphagia, diarrhea, constipation, hematemesis, melena, hematochezia, or abdominal pain URINARY: No frequency, urgency, polyuria, dysuria, hematuria, or incontinence MUSCULOSKELETAL: No muscle weakness, joint stiffness, decrease in range of motion, redness, swelling NEUROLOGIC: No headache, syncope, loss of sensation, numbness, tingling, tremors, weakness, paralysis, seizures HEMATOLOGIC: No anemia, easy bruising, bleeding, petechiae, or purpura ENDOCRINE: No hot or cold intolerance, sweating, polyuria, polydipsia or, polyphagia no thyroid problems PSYCHIATRIC: No change in mood, no anxiety, no depression GENITAL: Female: Vaginal bleeding. pelvic cramping episodic for weeks. No dishcarge ED Past Medical Hx - Past Medical History Previous Medical History?: Yes Hx Hypertension: No Hx Heart Attack/AMI: No Hx Diabetes: No Hx GERD: Yes Hx Liver Disease: No Hx Renal Disease: No Hx Seizures: No Hx Asthma: Yes (Haven't used meds "in a while") Hx COPD: No Hx Tuberculosis: No Additional medical history: anemia with hx. of blood transfusions, Vertigo - Surgical History Past Surgical History?: Yes Hx Appendectomy: Yes Additional Surgical History: x 2, Right middle finger, D&C, Tubal Ligation - Social History Smoking Status: Never Smoker Substance Use Type: None - Medications Home Medications: Home Medications Medication Instructions Recorded Confirmed Last Taken Type traMADol [Ultram] 50 mg PO Q6HR PRN #20 tablet 12/09/16 04/17/18 Unknown Rx HYDROcodone/APAP 5-325 [[place] 1 each PO Q6HR PRN #20 tablet 04/19/18 Unknown Rx 5/325] Acetaminophen [Acetaminophen TAB] 500 mg PO Q4HR #18 tablet 08/21/19 Unknown Rx ED Physical Exam - General Limitations: No Limitations - Other Other exam information: GENERAL: Patient in no acute distress HEAD: Normocephalic, atraumatic EYES: PERRLA, EOM intact, no scleral icterus, no conjunctival hemorrhage, visual whitt and acuity wnl NOSE: No tenderness, discharge, sinus tenderness MOUTH: No erythema, bleeding, exudate HEART: Regular rate and rhythm, no murmur, S1-S2 are auscultated, no edema, pulses are symmetric LUNGS: No respiratory distress. Bilateral breath sounds, No tachypnea, No retractions, No wheezing, rales, rhonchi ABDOMEN: Normal bowel sounds, abdomen soft, no tenderness, no rebound, no guarding, no distention, no masses, no CVA tenderness MUSCULOSKELETAL: Normal joint range of motion, no redness, no swelling, no tenderness NEUROLOGIC: GCS 15, Alert and Oriented x3, Cranial nerves intact, normal sensation, normal strength, no cerebellar deficit, NIHSS 0 SKIN: Skin is warm and dry, no wounds, no rashes ED Course Vital Signs 08/21/19 19:08 Temperature 98.4 F Pulse Rate 109 H Respiratory 20 Rate Blood Pressure 195/102 O2 Sat by Pulse 100 Oximetry ED Medical Decision Making - Lab Data Laboratory Results - last 24 hr 08/21/19 21:55 Urine Color Jaci Urine Turbidity Cloudy Urine pH 5.0 Ur Specific [place] 1.028 Urine Protein 100 mg/dl Urine Glucose (UA) Neg Urine Ketones Neg Urine Blood Lg Urine Nitrite Neg Urine Bilirubin Neg Urine Urobilinogen 2.0 Ur Leukocyte Esterase Neg Urine WBC (Auto) 2.0 Urine RBC (Auto) 182.0 U Epithel Cells (Auto) 22.0 H Urine Bacteria (Auto) 1+ Urine Mucus 3+ Urine HCG, Qual Negative - Medical Decision Making Patient comfortable. Reports symptom improvement. Updated with results. Reports noncompliant with antihypertensives. Encouraged to monitor BP and take medications. Plan discharge with outpatient follow up. Return if any worsen ing. Critical care attestation.: If time is entered above; I have spent that time in minutes in the direct care of this critically ill patient, excluding procedure time. ED Disposition Clinical Impression: Dysfunctional uterine bleeding Disposition: TO HOME OR SELFCARE Is pt being admited?: No Condition: Stable Instructions: Dysfunctional Uterine Bleeding (ED) Prescriptions: Acetaminophen [Acetaminophen TAB] 500 mg PO Q4HR #18 tablet Referrals: YANNICK GUTIERREZ DO [Staff Physician] - as needed BRENT VERNON MD [Staff Physician] - 2-3 Days Time of Disposition: 23:23
[2019-08-21 23:39] VITALS: BP 160/92
== END 2019-08-21 23:37 | disposition home or self-care (01) ==
LOC: ED 18:11
DX: N93.8 Other specified abnormal uterine and vaginal bleeding (principal); K21.9 Gastro-esophageal reflux disease without esophagitis; Z90.49 Acquired absence of other specified parts of digestive tract
CPT/HCPCS: 81001; 81025

== ENCOUNTER 2019-09-18 15:05 | Emergency (ER) | payer SELFPAY ==
[2019-09-18] MEDS ORDERED: ASPIRIN 325 MG TAB PO ONE (16:03)
--- NOTE | 2019-09-18 16:04 | Event Note ---
ED Screening Note Date of service: 09/18/19 Time: 16:01 ED Screening Note: 49 y o female presents with left sided chest pain radiating to shouldre and back x recent dx of HTN started meds on 5th This initial assessment/diagnostic orders/clinical plan/treatment(s) is/are subject to change based on patients health status, clinical progression and re- assessment by fellow clinical providers in the ED. Further treatment and workup at subsequent clinical providers discretion. Patient/guardian urged not to elope from the ED as their condition may be serious if not clinically assessed and managed. Initial orders include: labs, ekg, cxr
--- NOTE | 2019-09-18 16:37 | XRay Report ---
CHEST 1 VIEW INDICATION / CLINICAL INFORMATION: Chest Pain. COMPARISON: 12/19/2015 FINDINGS: SUPPORT DEVICES: None. HEART / MEDIASTINUM: No significant abnormality. LUNGS / PLEURA: No significant pulmonary or pleural abnormality. No pneumothorax. ADDITIONAL FINDINGS: No significant additional findings. IMPRESSION: 1. No significant change Signer Name: Ace Abraham MD Signed: 09/18/2019 4:33 PM Workstation Name: [id number]
[2019-09-18 17:31] LABS: Basophils # (Auto) 0.1 K/mm3 (0.0-0.1); Basophils % (Auto) 1.4 % (0.0-1.8); Eosinophils # (Auto) 0.1 K/mm3 (0.0-0.4); Hematocrit 33.9 % (30.3-42.9); Hemoglobin 10.6 gm/dl (10.1-14.3); Lymphocytes # (Auto) 2.2 K/mm3 (1.2-5.4); Lymphocytes % (Auto) 31.3 % (13.4-35.0); Mean Corpuscular HGB Conc 31 % (30-34); Monocytes # (Auto) 0.5 K/mm3 (0.0-0.8); Monocytes % (Auto) 7.6 % (0.0-7.3); Platelet Count 404 K/mm3 (140-440); Red Blood Count 4.97 M/mm3 (3.65-5.03)
[2019-09-18 17:32] LABS: Mean Corpuscular Volume 68 fl (79-97); Red Cell Distribution Width 21.8 % (13.2-15.2)
[2019-09-18 18:21] LABS: BUN/Creatinine Ratio 12; Blood Urea Nitrogen 7 mg/dL (7-17); Calcium 9.3 mg/dL (8.4-10.2); Hemolysis Index 3
[2019-09-18] MEDS ORDERED: HYDROcodone/ACETAMINOPHEN 5-325 MG TAB PO ONE (23:10)
--- NOTE | 2019-09-18 23:15 | Emergency Department Report ---
ED Chest Pain HPI - General Chief Complaint: Chest Pain Stated Complaint: CHEST PAIN/LOLITA Time Seen by Provider: 09/18/19 22:56 Source: patient Mode of arrival: Ambulatory Limitations: No Limitations - History of Present Illness Initial Comments: 49-year-old female with past medical history obesity, hypertension, recently diagnosed atrial fibrillation presents to the hospital with complaints of left- sided chest pain with radiation down the arm for several months. Patient states that she is a constant pain to the left upper chest described as pulling with intermittent sharp pain. pain fluctuates in intensity. It is somewhat worse with palpation and movement. Mild shortness of breath reported. She denies nausea, vomiting, states she woke up last night with diaphoresis. She followed up with [facility] yesterday and had an EKG that showed atrial fibrillation. She was started on metoprolol and amlodipine early this month and is supposed to be scheduled for outpatient echocardiogram heart. Patient denies previous stress test. She denies control pill use, history of PE/DVT, or smoking. She had a recent travels back and forth to [place] via car to visit her family. She complains of intermittent bilateral lower leg pain with intermittent left ankle swelling. Patient did have surgery to her left rotator cuff in October and thought that her pain to her chest and left arm are related to that. [facility] PMD Severity scale (0 -10): 10 - Related Data Previous Rx's Medication Instructions Recorded Last Taken Type traMADoL [Ultram] 50 mg PO Q6HR PRN #20 tablet 12/09/16 Unknown Rx Acetaminophen [Acetaminophen TAB] 500 mg PO Q4HR #18 tablet 08/21/19 Unknown Rx HYDROcodone/APAP 5-325 [[place] 1 each PO Q6HR PRN #20 tablet 09/19/19 Unknown Rx 5-325 mg TAB] Allergies Allergy/AdvReac Type Severity Reaction Status Date / Time amoxicillin [Amoxicillin] Allergy Rash Verified 08/21/19 18:12 Heart Score - HEART Score History: Slightly suspicious EKG: Normal Age: 45-65 Risk factors: 1-2 risk factors Troponin: < normal limit HEART Score: 2 ED Review of Systems ROS: Stated complaint: CHEST PAIN/LOLITA Other details as noted in HPI Comment: All other systems reviewed and negative ED Past Medical Hx - Past Medical History Previous Medical History?: Yes Hx Hypertension: No Hx Heart Attack/AMI: No Hx Diabetes: No Hx GERD: Yes Hx Liver Disease: No Hx Renal Disease: No Hx Seizures: No Hx Asthma: Yes (Haven't used meds "in a while") Hx COPD: No Hx Tuberculosis: No Additional medical history: anemia with hx. of blood transfusions, Vertigo - Surgical History Past Surgical History?: Yes Hx Appendectomy: Yes Additional Surgical History: x 2, Right middle finger, D&C, Tubal Ligation. 3 lumbar epidurals. 2 cervical epidurals - Social History Smoking Status: Never Smoker Substance Use Type: None - Medications Home Medications: Home Medications Medication Instructions Recorded Confirmed Last Taken Type traMADoL [Ultram] 50 mg PO Q6HR PRN #20 tablet 12/09/16 04/17/18 Unknown Rx Acetaminophen [Acetaminophen TAB] 500 mg PO Q4HR #18 tablet 08/21/19 Unknown Rx HYDROcodone/APAP 5-325 [[place] 1 each PO Q6HR PRN #20 tablet 09/19/19 Unknown Rx 5-325 mg TAB] ED Physical Exam - General Limitations: No Limitations - Other Other exam information: General: No acute distress Head: Atraumatic Eyes: normal appearance ENT: Moist mucous membranes Neck: Normal appearance, no midline tenderness Chest: Clear to auscultation bilaterally, left upper chest wall tenderness CV: Regular rate and rhythm Abdomen: Soft, normal bowel sounds, nontender, nondistended, no rebound or guarding Back: Normal inspection Extremity: Normal inspection infection, full range of motion, tenderness, mild left ankle edema Neuro: Alert O x 3, no facial asymmetry, speech clear, no gross motor deficit Psych: Appropriate behavior Skin: No rash ED Course Vital Signs 09/18/19 09/18/19 09/19/19 16:01 23:45 01:00 Temperature 98.5 F Pulse Rate 95 H 74 67 Respiratory 22 24 23 Rate Blood Pressure 156/93 135/81 130/74 O2 Sat by Pulse 100 100 99 Oximetry 09/19/19 03:17 Temperature Pulse Rate 67 Respiratory 14 Rate Blood Pressure 140/69 O2 Sat by Pulse 100 Oximetry - Consultations Consultation #1: 09/19/19 03:11 case d/w Dr Wright, since low heart score and neg troponin x3 f/u advised KIET score - Kiet Score Age > 65: (0) No Aspirin use within the Past 7 Days: (0) No 3 or more CAD Risk Factors: (0) No 2 or more Angina events in past 24 hrs: (0) No Known CAD with more than 50% Stenosis: (0) No Elevated Cardiac Markers: (0) No ST Deviation Greater than 0.5mm: (0) No KIET Score: 0 ED Medical Decision Making - Lab Data Result diagrams: 09/18/19 17:18 09/18/19 17:18 Lab Results 09/18/19 09/18/19 09/18/19 Range/Units 17:18 17:18 20:42 WBC 7.1 (4.5-11.0) K/mm3 RBC 4.97 (3.65-5.03) M/mm3 Hgb 10.6 (10.1-14.3) gm/dl Hct 33.9 (30.3-42.9) % MCV 68 L (79-97) fl MCH 21 L (28-32) pg MCHC 31 (30-34) % RDW 21.8 H (13.2-15.2) % Plt Count 404 (140-440) K/mm3 Lymph % (Auto) 31.3 (13.4-35.0) % Randall % (Auto) 7.6 H (0.0-7.3) % Eos % (Auto) 2.0 (0.0-4.3) % Baso % (Auto) 1.4 (0.0-1.8) % Lymph # 2.2 (1.2-5.4) K/mm3 Randall # 0.5 (0.0-0.8) K/mm3 Eos # 0.1 (0.0-0.4) K/mm3 Baso # 0.1 (0.0-0.1) K/mm3 Seg Neutrophils % 57.7 (40.0-70.0) % Seg Neutrophils # 4.1 (1.8-7.7) K/mm3 D-Dimer (0-234) ng/mlDDU Sodium 139 (137-145) mmol/L Potassium 3.8 (3.6-5.0) mmol/L Chloride 99.9 (98-107) mmol/L Carbon Dioxide 23 (22-30) mmol/L Anion Gap 20 mmol/L BUN 7 (7-17) mg/dL Creatinine 0.6 L (0.7-1.2) mg/dL Estimated GFR > 60 ml/min BUN/Creatinine Ratio 12 % Glucose 88 (65-100) mg/dL Calcium 9.3 (8.4-10.2) mg/dL Troponin T < 0.010 < 0.010 (0.00-0.029) ng/mL 09/18/19 09/18/19 Range/Units 22:41 23:29 WBC (4.5-11.0) K/mm3 RBC (3.65-5.03) M/mm3 Hgb (10.1-14.3) gm/dl Hct (30.3-42.9) % MCV (79-97) fl MCH (28-32) pg MCHC (30-34) % RDW (13.2-15.2) % Plt Count (140-440) K/mm3 Lymph % (Auto) (13.4-35.0) % Randall % (Auto) (0.0-7.3) % Eos % (Auto) (0.0-4.3) % Baso % (Auto) (0.0-1.8) % Lymph # (1.2-5.4) K/mm3 Randall # (0.0-0.8) K/mm3 Eos # (0.0-0.4) K/mm3 Baso # (0.0-0.1) K/mm3 Seg Neutrophils % (40.0-70.0) % Seg Neutrophils # (1.8-7.7) K/mm3 D-Dimer 557.25 H (0-234) ng/mlDDU Sodium (137-145) mmol/L Potassium (3.6-5.0) mmol/L Chloride (98-107) mmol/L Carbon Dioxide (22-30) mmol/L Anion Gap mmol/L BUN (7-17) mg/dL Creatinine (0.7-1.2) mg/dL Estimated GFR ml/min BUN/Creatinine Ratio % Glucose (65-100) mg/dL Calcium (8.4-10.2) mg/dL Troponin T < 0.010 (0.00-0.029) ng/mL - EKG Data -: EKG Interpreted by [facility] EKG shows normal: sinus rhythm, ST-T waves (no stemi) Rate: normal - EKG Data When compared to previous EKG there are: no significant change - Radiology Data Radiology results: report reviewed CHEST 1 VIEW INDICATION / CLINICAL INFORMATION: Chest Pain. COMPARISON: 12/19/2015 FINDINGS: SUPPORT DEVICES: None. HEART / MEDIASTINUM: No significant abnormality. LUNGS / PLEURA: No significant pulmonary or pleural abnormality. No pneumothorax. ADDITIONAL FINDINGS: No significant additional findings. IMPRESSION: 1. No significant change CT angio chest INDICATION / CLINICAL INFORMATION: left cp, elevate ddimer. TECHNIQUE: Axial CT images were obtained after injection of Omnipaque 350, 100 cc IV contrast using CTA protocol. 3 plane MIP / 3D reconstructions were produced. All CT scans at this location are perfo rmed using CT dose reduction for ALARA by means of automated exposure control. COMPARISON: None available. FINDINGS: Negative for lung mass, infiltrate or pleural fluid. No mediastinal mass or adenopathy. No aneurysm, dissection or pulmonary embolus. Imaging of the upper abdomen is unremarkable. IMPRESSION: No pulmonary embolus or pneumonia. - Medical Decision Making Patient presents with chest wall tenderness and radicular type of left arm pain with history of left shoulder surgery. In addition to cardiology workup she is also seeing brain and pensions retirement plan specialist and has upcoming appointment. Patient's cardiac workup here was unremarkable active extending ED stay. Patient has a low heart score, negative cardiac enzymes 3, and a normal EKG 2 without ischemia. Dimer was elevated without calf tenderness and patient and negative CT angiogram chest. Case discussed with portal administrator. Patient may continue her outpatient cardiac workup. Patient be treated with pain medication and a sling for comfort. Pt has motrin 800mg at home - Differential Diagnosis muscular skeletal pain, radiculopathy, PE, [place], unstable angina Critical Care Time: No Critical care attestation.: If time is entered above; I have spent that time in minutes in the direct care of this critically ill patient, excluding procedure time. ED Disposition Clinical Impression: Chest pain, Radicular pain in left arm, Hx of rotator cuff surgery Disposition: DC-01 TO HOME OR SELFCARE Is pt being admited?: No Does the pt Need Aspirin: No Condition: Stable Instructions: Chest Pain (ED) Additional Instructions: Take the medication as prescribed. Follow-up with your doctor or doctor/clinic provided. Return if symptoms worsen as indicated by your discharge instructions. Prescriptions: HYDROcodone/APAP 5-325 [[place] 5-325 mg TAB] 1 each PO Q6HR PRN #20 tablet PRN Reason: Pain Referrals: YAN PRIDE MD [Primary Care Provider] - 3-5 Days ORACIO YODER MD [Staff Physician] - 3-5 Days Time of Disposition: 03:43
[2019-09-19] MEDS ORDERED: ASPIRIN 325 MG TAB ONE (01:24)
--- NOTE | 2019-09-19 02:46 | Cat Scan Report ---
CT angio chest INDICATION / CLINICAL INFORMATION: left cp, elevate ddimer. TECHNIQUE: Axial CT images were obtained after injection of Omnipaque 350, 100 cc IV contrast using CTA protocol . 3 plane MIP / 3D reconstructions were produced. All CT scans at this location are performed using C T dose reduction for ALARA by means of automated exposure control. COMPARISON: None available. FINDINGS: Negative for lung mass, infiltrate or pleural fluid. No mediastinal mass or adenopathy. No aneurysm, dissection or pulmonary embolus. Imaging of the upper abdomen is unremarkable. IMPRESSION: No pulmonary embolus or pneumonia. Signer Name: Gamaliel Stark MD Signed: 09/19/2019 2:42 AM Workstation Name: [id number]
[2019-09-19] MEDS ORDERED: HYDROcodone/ACETAMINOPHEN 5-325 MG TAB PO ONE (03:38)
[2019-09-19 04:04] VITALS: BP 130/70
== END 2019-09-19 04:17 | disposition home or self-care (01) ==
LOC: ED 15:05
DX: R07.89 Other chest pain (principal); M79.602 Pain in left arm; I10 Essential (primary) hypertension; E66.9 Obesity, unspecified; Z68.42 Body mass index [BMI] 45.0-49.9, adult; I48.91 Unspecified atrial fibrillation; K21.9 Gastro-esophageal reflux disease without esophagitis; J45.909 Unspecified asthma, uncomplicated; Z90.49 Acquired absence of other specified parts of digestive tract; Z79.899 Other long term (current) drug therapy; Z98.51 Tubal ligation status; Z88.1 Allergy status to other antibiotic agents; Z98.890 Other specified postprocedural states
CPT/HCPCS: 36415; 71045; 71275; 80048; 84484; 85025; 85379; 93005; 93010; 99285; Q9967

== ENCOUNTER 2020-04-30 10:45 | Emergency (ER) | payer SELFPAY ==
--- NOTE | 2020-04-30 11:18 | Event Note ---
ED Screening Note Date of service: 04/30/20 Time: 11:16 ED Screening Note: Pt presents with complaints of dizziness and palpitations x 3 days hx of HTN, anemia, HLD, and prediabetes states mild chest pain and SOB This initial assessment/diagnostic orders/clinical plan/treatment(s) is/are subject to change based on patients health status, clinical progression and re- assessment by fellow clinical providers in the ED. Further treatment and workup at subsequent clinical providers discretion. Patient/guardian urged not to elope from the ED as their condition may be serious if not clinically assessed and managed. Initial orders include: labs CXR EKG
[2020-04-30 11:54] LABS: Basophils % (Auto) 0.8 % (0.0-1.8); Eosinophils # (Auto) 0.2 K/mm3 (0.0-0.4); Eosinophils % (Auto) 3.9 % (0.0-4.3); Hematocrit 37.8 % (30.3-42.9); Hemoglobin 11.9 gm/dl (10.1-14.3); Lymphocytes # (Auto) 1.8 K/mm3 (1.2-5.4); Lymphocytes % (Auto) 32.3 % (13.4-35.0); Mean Corpuscular HGB Conc 32 % (30-34); Mean Corpuscular Volume 74 fl (79-97); Monocytes # (Auto) 0.4 K/mm3 (0.0-0.8); Monocytes % (Auto) 6.6 % (0.0-7.3); Platelet Count 360 K/mm3 (140-440); Red Blood Count 5.08 M/mm3 (3.65-5.03); Red Cell Distribution Width 18.4 % (13.2-15.2)
[2020-04-30 12:18] LABS: Alanine Aminotransferase 19 units/L (7-56); Albumin 4.1 g/dL (3.9-5); BUN/Creatinine Ratio 10; Blood Urea Nitrogen 7 mg/dL (7-17); Calcium 9.9 mg/dL (8.4-10.2); Hemolysis Index 11
--- NOTE | 2020-04-30 12:30 | XRay Report ---
CHEST 1 VIEW 04/30/2020 10:40 AM INDICATION / CLINICAL INFORMATION: chest pain. COMPARISON: 09/18/2019 FINDINGS: SUPPORT DEVICES: None. HEART / MEDIASTINUM: No significant abnormality. LUNGS / PLEURA: No significant pulmonary or pleural abnormality. No pneumothorax. ADDITIONAL FINDINGS: No significant additional findings. IMPRESSION: 1. No acute findings. Signer Name: Loco Marrero MD Signed: 04/30/2020 12:26 PM Workstation Name: [id number]
--- NOTE | 2020-04-30 14:48 | Emergency Department Report ---
ED Dizziness HPI - General Chief Complaint: Arrhythmia/Palpitations Stated Complaint: DIZZY/LIGHTHEADED/CHEST PALPATATIONS Time Seen by Provider: 04/30/20 11:14 Source: patient, family Mode of arrival: Wheelchair Limitations: No Limitations - History of Present Illness Initial Comments: This is a 49-year-old female with history of hypertension atrial fibrillation anemia presents with lightheadedness fatigue for the last 3 days. She has been taking metoprolol since December to address hypertension and atrial fibrillation. According to her report she had normal left heart cardiac catheterization in September at [facility]. She is followed by Dr. Ugarte [facility]. She denies vertigo symptoms. She denies paralysis or trouble with ambulation. She has had intermittent palpitations which lasts only seconds to minutes. She denies chest pain. MD Complaint: dizziness, lightheadedness -: Gradual, days(s) (3) Timing: gradual onset Description: lightheadedness History of Same: Yes History of Trauma: No Severity: mild Improves With: rest Worsens With: position Associated Symptoms: malaise (Malaise fatigue) - Related Data Home Medications Medication Instructions Recorded Confirmed Last Taken Aspirin [Adult Aspirin] 81 mg PO DAILY 10/08/19 01/05/20 Unknown Ferrous Sulfate [Ferrous Sulfate 325 mg PO BID 10/08/19 01/05/20 Unknown 324 MG] Ibuprofen [Motrin] 800 mg PO Q8HR PRN 10/08/19 01/05/20 Unknown AtorvaSTATin [Lipitor] 40 mg PO QHS 01/05/20 01/05/20 Unknown Ergocalciferol [Vitamin D2] 50,000 unit PO QWEEK 01/05/20 01/05/20 Unknown hydroCHLOROthiazide [HCTZ] 25 mg PO QDAY 01/05/20 01/05/20 Unknown Allergies Allergy/AdvReac Type Severity Reaction Status Date / Time amoxicillin [Amoxicillin] Allergy Rash Verified 01/05/20 17:57 ED Review of Systems ROS: Stated complaint: DIZZY/LIGHTHEADED/CHEST PALPATATIONS Other details as noted in HPI Comment: All other systems reviewed and negative Constitutional: malaise Respiratory: orthopnea. denies: cough Cardiovascular: palpitations. denies: chest pain Gastrointestinal: denies: abdominal pain, nausea, vomiting ED Past Medical Hx - Past Medical History Previous Medical History?: Yes Hx Hypertension: Yes Hx Heart Attack/AMI: No Hx Diabetes: No Hx GERD: Yes Hx Liver Disease: No Hx Renal Disease: No Hx Seizures: No Hx Asthma: Yes (Not treated in over 5 years) Hx COPD: No Hx Tuberculosis: No Additional medical history: anemia with hx. of blood transfusions, Vertigo. afib - Surgical History Past Surgical History?: Yes Hx Appendectomy: Yes Additional Surgical History: x 2, Right middle finger, D&C, Tubal Ligation. 3 lumbar epidurals. 2 cervical epidurals - Social History Smoking Status: Never Smoker Substance Use Type: None - Medications Home Medications: Home Medications Medication Instructions Recorded Confirmed Last Taken Type Aspirin [Adult Aspirin] 81 mg PO DAILY 10/08/19 01/05/20 Unknown History Ferrous Sulfate [Ferrous Sulfate 325 mg PO BID 10/08/19 01/05/20 Unknown History 324 MG] Ibuprofen [Motrin] 800 mg PO Q8HR PRN 10/08/19 01/05/20 Unknown History AtorvaSTATin [Lipitor] 40 mg PO QHS 01/05/20 01/05/20 Unknown History Ergocalciferol [Vitamin D2] 50,000 unit PO QWEEK 01/05/20 01/05/20 Unknown History hydroCHLOROthiazide [HCTZ] 25 mg PO QDAY 01/05/20 01/05/20 Unknown History ED Physical Exam - General Limitations: No Limitations General appearance: alert, in no apparent distress - Head Head exam: Present: atraumatic, normocephalic - Eye Eye exam: Present: normal appearance - ENT ENT exam: Present: mucous membranes moist - Neck Neck exam: Present: normal inspection, full ROM - Respiratory Respiratory exam: Present: normal lung sounds bilaterally. Absent: respiratory distress, wheezes, rales, rhonchi - Cardiovascular Cardiovascular Exam: Present: regular rate, normal rhythm, normal heart sounds. Absent: systolic murmur, diastolic murmur, rubs, gallop - GI/Abdominal GI/Abdominal exam: Present: soft, normal bowel sounds. Absent: distended, tenderness, guarding, rebound - Extremities Exam Extremities exam: Present: normal inspection - Neurological Exam Neurological exam: Present: alert, oriented X3 - Psychiatric Psychiatric exam: Present: normal affect, normal mood - Skin Skin exam: Present: warm, dry, intact, normal color. Absent: rash ED Course Vital Signs 04/30/20 04/30/20 11:14 12:45 Temperature 98.5 F 98.7 F Pulse Rate 81 66 Respiratory 18 15 Rate Blood Pressure 153/76 142/77 O2 Sat by Pulse 100 100 Oximetry ED Medical Decision Making - Lab Data Result diagrams: 04/30/20 11:44 04/30/20 11:44 Laboratory Results - last 24 hr 04/30/20 04/30/20 11:44 11:44 WBC 5.7 RBC 5.08 H Hgb 11.9 Hct 37.8 MCV 74 L MCH 23 L MCHC 32 RDW 18.4 H Plt Count 360 Lymph % (Auto) 32.3 [place] % (Auto) 6.6 Eos % (Auto) 3.9 Baso % (Auto) 0.8 Lymph # 1.8 [place] # 0.4 Eos # 0.2 Baso # 0.0 Seg Neutrophils % 56.4 Seg Neutrophils # 3.2 Sodium 140 Potassium 4.5 Chloride 102.7 Carbon Dioxide 26 Anion Gap 16 BUN 7 Creatinine 0.7 Estimated GFR > 60 BUN/Creatinine Ratio 10 Glucose 109 H Calcium 9.9 Total Bilirubin 0.40 AST 20 ALT 19 Alkaline Phosphatase 95 Troponin T < 0.010 Total Protein 7.6 Albumin 4.1 Albumin/Globulin Ratio 1.2 - EKG Data -: EKG Interpreted by Me EKG shows normal: sinus rhythm, axis, intervals, QRS complexes, ST-T waves Rate: normal - EKG Data Interpretation: normal EKG - Medical Decision Making Ms. De La Garza presents with lightheadedness fatigue. I suspect adverse effect from metoprolol beta-daniel versus dehydration versus fatigue. What work-up today I do not suspect acute coronary syndrome, CVA anemia. CBC chemistry within normal limits. EKG normal. She may be experiencing lightheadedness with intermittent paroxysmal atrial fibrillation. I encouraged her to follow-up with her personal wooden frame builder Dr. Ugarte for possible medication change. Discharged home. Critical care attestation.: If time is entered above; I have spent that time in minutes in the direct care of this critically ill patient, excluding procedure time. ED Disposition Clinical Impression: Lightheadedness Disposition: DC-01 TO HOME OR SELFCARE Is pt being admited?: No Does the pt Need Aspirin: No Condition: Stable Instructions: Lightheadedness (ED) Referrals: YAN PRIDE MD [Primary Care Provider] - 3-5 Days GABE UGARTE MD [Staff Physician] - 3-5 Days
[2020-04-30 14:54] VITALS: BP 134/83
== END 2020-04-30 14:54 | disposition home or self-care (01) ==
LOC: ED 10:45
DX: R42 Dizziness and giddiness (principal); I10 Essential (primary) hypertension; K21.9 Gastro-esophageal reflux disease without esophagitis; J45.909 Unspecified asthma, uncomplicated; Z86.2 Personal history of diseases of the blood and blood-forming organs and certain disorders involving the immune mechanism; Z90.49 Acquired absence of other specified parts of digestive tract; Z98.51 Tubal ligation status; Z98.890 Other specified postprocedural states; Z79.899 Other long term (current) drug therapy; Z88.1 Allergy status to other antibiotic agents
CPT/HCPCS: 36415; 71045; 80053; 84484; 85025

== ENCOUNTER 2020-05-06 23:59 | Emergency (ER) | payer SELFPAY ==
--- NOTE | 2020-05-07 01:02 | XRay Report ---
CHEST 2 VIEWS INDICATION / CLINICAL INFORMATION: Chest palpitations. COMPARISON: 04/30/20. FINDINGS: SUPPORT DEVICES: None. HEART / MEDIASTINUM: The heart size and pulmonary vasculature are normal. The aorta is normal in gavin yamileth. LUNGS / PLEURA: No significant pulmonary or pleural abnormality. No pneumothorax. ADDITIONAL FINDINGS: No significant additional findings. IMPRESSION: No acute abnormality or significant change. Signer Name: Massimo Masterson MD Signed: 05/07/2020 12:58 AM Workstation Name: [id number]
--- NOTE | 2020-05-07 03:37 | Emergency Department Report ---
HPI - General Chief Complaint: Head Injury Time Seen by Provider: 05/07/20 03:13 - HPI HPI: This is a 49-year-old female presents to the emergency department after a cabinet door fell down her head while she was having her hair washed yesterday late afternoon. There was no loss of consciousness. The patient was sitting at home yesterday evening and felt tired and groggy. She felt a bump on her head that she had not previously noticed. She called her PCP who told her to come to the emergency department for further evaluation of this head injury. She has a past medical history that includes hypertension, atrial fibrillation, vertigo. She has not taken anything for symptoms prior to presentation. She denies any fever, vision change, slurred speech, numbness or paresthesias, or any neurological deficits. ED Past Medical Hx - Past Medical History Previous Medical History?: Yes Hx Hypertension: Yes Hx Heart Attack/AMI: No Hx Diabetes: No Hx GERD: Yes Hx Liver Disease: No Hx Renal Disease: No Hx Seizures: No Hx Asthma: Yes (Not treated in over 5 years) Hx COPD: No Hx Tuberculosis: No Additional medical history: anemia with hx. of blood transfusions, Vertigo. afib - Surgical History Past Surgical History?: Yes Hx Appendectomy: Yes Additional Surgical History: x 2, Right middle finger, D&C, Tubal Ligation. 3 lumbar epidurals. 2 cervical epidurals - Social History Smoking Status: Never Smoker Substance Use Type: None - Medications Home Medications: Home Medications Medication Instructions Recorded Confirmed Last Taken Type Aspirin [Adult Aspirin] 81 mg PO DAILY 10/08/19 01/05/20 Unknown History Ferrous Sulfate [Ferrous Sulfate 325 mg PO BID 10/08/19 01/05/20 Unknown History 324 MG] Ibuprofen [Motrin] 800 mg PO Q8HR PRN 10/08/19 01/05/20 Unknown History AtorvaSTATin [Lipitor] 40 mg PO QHS 01/05/20 01/05/20 Unknown History Ergocalciferol [Vitamin D2] 50,000 unit PO QWEEK 01/05/20 01/05/20 Unknown History hydroCHLOROthiazide [HCTZ] 25 mg PO QDAY 01/05/20 01/05/20 Unknown History ED Review of Systems ROS: Stated complaint: HEAD INJURY Other details as noted in HPI Comment: All other systems reviewed and negative Constitutional: denies: chills, fever Eyes: denies: eye pain, vision change Respiratory: denies: shortness of breath Cardiovascular: denies: chest pain Gastrointestinal: denies: abdominal pain, vomiting Musculoskeletal: denies: back pain, arthralgia Skin: denies: rash, lesions Neurological: headache. denies: numbness, paresthesias Physical Exam - Physical Exam Vital Signs: Vital Signs 05/07/20 05/07/20 00:08 03:25 Temperature 98.6 F 98.2 F Pulse Rate 74 94 H Respiratory 20 18 Rate Blood Pressure 139/82 Blood Pressure 154/71 [Left] O2 Sat by Pulse 100 98 Oximetry Physical Exam: GENERAL: The patient is well-developed well-nourished. HENT: Normocephalic. Atraumatic. Patient has moist mucous membranes. EYES: Extraocular motions are intact. No nystagmus. NECK: Supple. Trachea is midline. CHEST/LUNGS: Clear to auscultation. There is no respiratory distress noted. HEART/CARDIOVASCULAR: Regular. There is no tachycardia. ABDOMEN: Abdomen is soft, nontender. Patient has normal bowel sounds. SKIN: Skin is warm and dry. NEURO: The patient is awake, alert, and oriented. The patient is cooperative. The patient has no focal neurologic deficits. Normal speech. Cranial nerves II through XII grossly intact. No pronator drift. No dysmetria. MUSCULOSKELETAL: There is no tenderness or deformity. There is no limitation range of motion. ED Course Vital Signs 05/07/20 05/07/20 00:08 03:25 Temperature 98.6 F 98.2 F Pulse Rate 74 94 H Respiratory 20 18 Rate Blood Pressure 139/82 Blood Pressure 154/71 [Left] O2 Sat by Pulse 100 98 Oximetry ED Medical Decision Making - Radiology Data Radiology results: report reviewed, image reviewed interpreted by me: Chest x-ray does not show any acute process. There are no pleural effusions, obvious pneumonia and there is no pneumothorax. CT HEAD/BRAIN WO CON INDICATION / CLINICAL INFORMATION: Head trauma, now with a headache. Cabinet door broke off and hit her in the head. No L.O.C.. TECHNIQUE: All CT scans at this location are performed using CT dose reduction for ALARA by means of automated exposure control. COMPARISON: 12/19/15. FINDINGS: The ventricular system is normal in size and configuration. No focal lesion or mass effect is seen. There is no evidence of intracranial hemorrhage or major vessel occlusion. The calvarium is intact. There is mild chronic right ethmoid sinusit is. Sinus disease has improved since the prior exam. IMPRESSION: No acute abnormality. - Medical Decision Making This patient presents to the emergency department after being hit in the head by a cabinet door while getting her hair washed. On examination there is no focal, motor or sensory deficits and her cranial nerves are intact. CT scan of the head without contrast was done that does not show any bleed, shift, mass, fracture, ischemia, or any other acute process. Apparently the patient complained of having some palpitations in triage and therefore a EKG was done. EKG does not show any signs of ST elevation NM or any dysrhythmia. A chest x- ray was also completed that does not show any pneumonia, pneumothorax, pleural effusions, or any other acute process. Her vital signs been stable throughout her ED course. The patient was seen ambulatory in the emergency department and both appears and feels stable. She will follow-up with her primary care physician and will return to the ER with any worsening of her symptoms or any acute distress. Critical Care Time: No Critical care attestation.: If time is entered above; I have spent that time in minutes in the direct care of this critically ill patient, excluding procedure time. ED Disposition Clinical Impression: Closed head injury Qualifiers: Encounter type: initial encounter Qualified Code(s): S09.90XA - Unspecified injury of head, initial encounter Disposition: DC- TO HOME OR SELFCARE Is pt being admited?: No Condition: Stable Instructions: Minor Head Injury (ED) Additional Instructions: Please follow-up with your primary care physician in the next few days. Return to the emergency department with any worsening of your symptoms or any acute distress. Referrals: PRIMARY CARE, [Primary Care Provider] - 2-3 Days Time of Disposition: 04:12
--- NOTE | 2020-05-07 04:08 | Cat Scan Report ---
CT HEAD/BRAIN WO CON INDICATION / CLINICAL INFORMATION: Head trauma, now with a headache. Cabinet door broke off and hit her in the head. No L.O.C.. TECHNIQUE: All CT scans at this location are performed using CT dose reduction for ALARA by means of automated e xposure control. COMPARISON: 12/19/15. FINDINGS: The ventricular system is normal in size and configuration. No focal lesion or mass effect is seen. T here is no evidence of intracranial hemorrhage or major vessel occlusion. The calvarium is intact. There is mild chronic right ethmoid sinusitis. Sinus disease has improved si nce the prior exam. IMPRESSION: No acute abnormality. Signer Name: Massimo Masterson MD Signed: 05/07/2020 4:03 AM Workstation Name: [email or web address]
[2020-05-07 06:05] VITALS: BP 140/82
== END 2020-05-07 04:17 | disposition home or self-care (01) ==
LOC: ED 23:59
DX: S09.90XA Unspecified injury of head, initial encounter (principal); I10 Essential (primary) hypertension; K21.9 Gastro-esophageal reflux disease without esophagitis; J45.909 Unspecified asthma, uncomplicated; W22.8XXA Striking against or struck by other objects, initial encounter; Y93.89 Activity, other specified; Y92.89 Other specified places as the place of occurrence of the external cause; Y99.8 Other external cause status
CPT/HCPCS: 70450; 71046; 93005; 99284

== ENCOUNTER 2021-01-21 23:32 | Emergency (ER) | payer SELFPAY ==
[2021-01-22 00:08] VITALS: BP 148/79
--- NOTE | 2021-01-22 00:58 | XRay Report ---
CHEST PA AND LATERAL VIEWS INDICATION: cough. COMPARISON: 05/28/2020 FINDINGS: Support devices: None Heart: Normal and unchanged Lungs/Pleura: No acute pulmonary or pleural findings. IMPRESSION: 1. No active disease and no interval change. Signer Name: Armani Mueller MD Signed: 01/22/2021 12:53 AM Workstation Name: [id number]
--- NOTE | 2021-01-22 01:41 | Emergency Department Report ---
- General Chief Complaint: Dizziness Stated Complaint: CONGESTION;DIZZY;LEFT SIDED TINGLING Source: patient Mode of arrival: Ambulatory Limitations: No Limitations - History of Present Illness Initial Comments: Patient is a 50-year-old -[place]ammar[place] female with a history of obesity, GERD, asthma, chronic iron deficiency anemia, vertigo and hypertension who presents to the ED with complaint of acute onset persistent nasal and sinus congestion, frontal sinus pressure, left ear pain, persistent dry cough for the last 1 week, worse in the last 2 days. Patient states that whenever she flexes her neck to look down the pressure in her frontal and maxillary sinuses get worse. Patient also complains of persistent lightheadedness for the last 5 days. Patient states that she has been taking [id number] medications with no relief. Patient denies dizziness, syncope, chest pain, shortness of breath, fever, chills, sore throat, nausea and vomiting, diarrhea, change in vision, abdominal pain, dysuria, urinary frequency and urgency, neck pain, numbness and tingling or weakness of upper extremities bilaterally MD Complaint: cough, rhinorrhea, nasal congestion, sinus pain, other (left ear pain; lightheadededness) -: Sudden, week(s) (1) Severity: severe Severity scale (0 -10): 7 Quality: sharp, aching, other (Pressure-like) Consistency: constant Improves With: nothing Worsens With: changing head position Associated Symptoms: denies other symptoms, headache, rhinorrhea, nasal congestion, cough, ear pain (Left ear pain). denies: fever, chills, myalgias, diaphoresis, sore throat, stiff neck, chest pain, shortness of breath, abdominal pain, nausea, vomiting, diarrhea, dysuria, rash, confusion, epistaxis Treatments Prior to Arrival: Acetaminophen, "cold medicine" - Related Data Home Medications Medication Instructions Recorded Confirmed Last Taken Aspirin [Adult Aspirin] 81 mg PO DAILY 10/08/19 01/05/20 Unknown Ferrous Sulfate [Ferrous Sulfate 325 mg PO BID 10/08/19 01/05/20 Unknown 324 MG] Ibuprofen [Motrin] 800 mg PO Q8HR PRN 10/08/19 01/05/20 Unknown AtorvaSTATin [Lipitor] 40 mg PO QHS 01/05/20 01/05/20 Unknown Ergocalciferol [Vitamin D2] 50,000 unit PO QWEEK 01/05/20 01/05/20 Unknown hydroCHLOROthiazide [HCTZ] 25 mg PO QDAY 01/05/20 01/05/20 Unknown Previous Rx's Medication Instructions Recorded Last Taken Type Cyclobenzaprine [Flexeril] 10 mg PO TID PRN #14 tablet 05/28/20 Unknown Rx Ibuprofen [Motrin 800 MG tab] 800 mg PO Q8HR PRN #20 tablet 05/28/20 Unknown Rx Benzonatate [Tessalon Perles] 100 mg PO Q8HR #30 capsule 01/22/21 Unknown Rx Cetirizine HCl [Zyrtec 10mg tab] 10 mg PO DAILY #30 tablet 01/22/21 Unknown Rx Clindamycin [Clindamycin CAP] 300 mg PO Q8HR #60 capsule 01/22/21 Unknown Rx Ibuprofen [Motrin] 800 mg PO Q8HR PRN #30 tablet 01/22/21 Unknown Rx Ondansetron [Zofran Odt] 4 mg PO Q8HR PRN #15 tab.rapdis 01/22/21 Unknown Rx methylPREDNISolone [Medrol 4MG 4 mg PO DAILY #21 tab.ds.pk 01/22/21 Unknown Rx DOSEPAK (21 tabs)] Allergies Allergy/AdvReac Type Severity Reaction Status Date / Time amoxicillin [Amoxicillin] Allergy Rash Verified 05/28/20 12:51 ED Review of Systems ROS: Stated complaint: CONGESTION;DIZZY;LEFT SIDED TINGLING Other details as noted in HPI Constitutional: denies: chills, fever Eyes: denies: eye pain, eye discharge, vision change ENT: ear pain (Left ear pain), congestion (Frontal and maxillary sinus pressure; nasal and sinus congestion). denies: throat pain Respiratory: cough (Dry cough). denies: shortness of breath, wheezing Cardiovascular: denies: chest pain, palpitations Endocrine: no symptoms reported Gastrointestinal: denies: abdominal pain, nausea, diarrhea Genitourinary: denies: urgency, dysuria, discharge Musculoskeletal: denies: back pain, joint swelling, arthralgia Skin: denies: rash, lesions Neurological: headache, other (Lightheadedness). denies: weakness, paresthesias Psychiatric: denies: anxiety, depression Hematological/Lymphatic: denies: easy bleeding, easy bruising ED Past Medical Hx - Past Medical History Previous Medical History?: Yes Hx Hypertension: Yes (Pt states she no longer has HTN) Hx Heart Attack/AMI: No Hx Diabetes: No Hx GERD: Yes Hx Liver Disease: No Hx Renal Disease: No Hx Seizures: No Hx Asthma: Yes (Not treated in over 5 years) Hx COPD: No Hx Tuberculosis: No Additional medical history: anemia with hx. of blood transfusions, Vertigo. afib - Surgical History Hx Appendectomy: Yes Additional Surgical History: x 2, Right middle finger, D&C, Tubal Ligation. 3 lumbar epidurals. 2 cervical epidurals. Lt rotator cuff - Social History Smoking Status: Never Smoker Substance Use Type: Alcohol - Medications Home Medications: Home Medications Medication Instructions Recorded Confirmed Last Taken Type Aspirin [Adult Aspirin] 81 mg PO DAILY 10/08/19 01/05/20 Unknown History Ferrous Sulfate [Ferrous Sulfate 325 mg PO BID 10/08/19 01/05/20 Unknown History 324 MG] Ibuprofen [Motrin] 800 mg PO Q8HR PRN 10/08/19 01/05/20 Unknown History AtorvaSTATin [Lipitor] 40 mg PO QHS 01/05/20 01/05/20 Unknown History Ergocalciferol [Vitamin D2] 50,000 unit PO QWEEK 01/05/20 01/05/20 Unknown History hydroCHLOROthiazide [HCTZ] 25 mg PO QDAY 01/05/20 01/05/20 Unknown History Cyclobenzaprine [Flexeril] 10 mg PO TID PRN #14 tablet 05/28/20 Unknown Rx Ibuprofen [Motrin 800 MG tab] 800 mg PO Q8HR PRN #20 tablet 05/28/20 Unknown Rx Benzonatate [Tessalon Perles] 100 mg PO Q8HR #30 capsule 01/22/21 Unknown Rx Cetirizine HCl [Zyrtec 10mg tab] 10 mg PO DAILY #30 tablet 01/22/21 Unknown Rx Clindamycin [Clindamycin CAP] 300 mg PO Q8HR #60 capsule 01/22/21 Unknown Rx Ibuprofen [Motrin] 800 mg PO Q8HR PRN #30 tablet 01/22/21 Unknown Rx Ondansetron [Zofran Odt] 4 mg PO Q8HR PRN #15 tab.rapdis 01/22/21 Unknown Rx methylPREDNISolone [Medrol 4MG 4 mg PO DAILY #21 tab.ds.pk 01/22/21 Unknown Rx DOSEPAK (21 tabs)] ED Physical Exam - General Limitations: No Limitations General appearance: alert, in no apparent distress - Head Head exam: Present: atraumatic, normocephalic, normal inspection - Eye Eye exam: Present: normal appearance, PERRL, EOMI Pupils: Present: normal accommodation - ENT ENT exam: Present: normal orophraynx, mucous membranes moist, other (Bulging, erythematous left tympanic membrane with effusion; grossly congested nasal passages; palpable maxillary sinus tenderness) - Neck Neck exam: Present: normal inspection, full ROM - Respiratory Respiratory exam: Present: normal lung sounds bilaterally. Absent: respiratory distress, wheezes, rhonchi, stridor, chest wall tenderness, accessory muscle use, decreased breath sounds - Cardiovascular Cardiovascular Exam: Present: regular rate, normal rhythm, normal heart sounds. Absent: systolic murmur, diastolic murmur, rubs, gallop - GI/Abdominal GI/Abdominal exam: Present: soft, normal bowel sounds. Absent: tenderness, guarding, rebound, hyperactive bowel sounds, hypoactive bowel sounds, organomegaly - Extremities Exam Extremities exam: Present: normal inspection, full ROM, normal capillary refill - Back Exam Back exam: Present: normal inspection, full ROM. Absent: tenderness, CVA tenderness (R), CVA tenderness (L), muscle spasm, paraspinal tenderness, vertebral tenderness - Neurological Exam Neurological exam: Present: alert, oriented X3, CN II-XII intact, normal gait, reflexes normal - Psychiatric Psychiatric exam: Present: normal affect, normal mood - Skin Skin exam: Present: warm, dry, intact, normal color. Absent: rash ED Course Vital Signs 01/22/21 00:07 Temperature 98 F Pulse Rate 77 Respiratory 18 Rate Blood Pressure 148/79 [Right] O2 Sat by Pulse 100 Oximetry ED Medical Decision Making - Radiology Data Radiology results: report reviewed, image reviewed [facility] [address] [place] [address] XRay Report Signed Patient: SÁNCHEZ RAWLS MR#: [id number] : 1970 Acct:[id number] Age/Sex: 50 / F ADM Date: 01/21/21 Loc: ED Attending Dr: Ordering Physician: ED DOCMD Date of Service: 01/22/21 Procedure(s): XR chest routine 2V Accession Number(s): [id number] cc: ED DOC, Fluoro Time In Minutes: CHEST PA AND LATERAL VIEWS INDICATION: cough. COMPARISON: 05/28/2020 FINDINGS: Support devices: None Heart: Normal and unchanged Lungs/Pleura: No acute pulmonary or pleural findings. IMPRESSION: 1. No active disease and no interval change. Signer Name: Armani Mueller MD Signed: 01/22/2021 12:53 AM Workstation Name: [id number] Transcribed By: TM Dictated By: Armani uMeller MD Electronically Authenticated By: Armani Mueller MD Signed Date/Time: 01/22/2152 DD/ TD/TT: Print Cancel - Medical Decision Making This is a 50-year-old -Sammarinese female with a history of obesity, GERD, asthma, chronic iron deficiency anemia, vertigo and hypertension who presents to the ED with complaint of acute onset persistent nasal and sinus congestion, frontal sinus pressure, left ear pain, persistent dry cough for the last 1 week, worse in the last 2 days. Patient states that whenever she flexes her neck to look down the pressure in her frontal and maxillary sinuses get worse. Patient also complains of persistent lightheadedness for the last 5 days. Patient states that she has been taking [id number] medications with no relief. In the ED, patient is alert and oriented x3 and is not in any distress. Based on the history and physical exam findings, the patient symptoms are likely due to acute upper respiratory infection, sinus infection, otitis media of the left ear and acute bronchitis. Chest x-ray shows no acute cardiopulmonary abnormalities or pneumonitis. Patient was treated in the ED for suspected frontal and maxillary sinusitis, nasal and sinus congestion left otitis media with effusion and acute bronchitis. Patient was thereafter discharged home on pain medications and antibiotics and was advised to follow-up with her primary care physician in 5 to 7 days for reevaluation. Patient was advised return to the ED immediately if symptoms get worse. - Differential Diagnosis Sinusitis; pneumonia; bronchitis; URI; otitis media Critical care attestation.: If time is entered above; I have spent that time in minutes in the direct care of this critically ill patient, excluding procedure time. ED Disposition Clinical Impression: Acute upper respiratory infection, Acute otitis media with effusion of left ear Acute maxillary sinusitis, unspecified Qualifiers: Recurrence: non-recurrent Qualified Code(s): J01.00 - Acute maxillary sinusitis, unspecified Acute bronchitis Qualifiers: Bronchitis organism: unspecified organism Qualified Code(s): J20.9 - Acute bronchitis, unspecified Disposition: - TO HOME OR SELFCARE Is pt being admited?: No Does the pt Need Aspirin: No Condition: Stable Instructions: Otitis Media (ED), Acute Bronchitis (ED), Sinusitis, Adult, Glyc-[id number], Upper Respiratory Infection, Adult, [id number]-[id number], Cough, Adult, Kdsp-ni-Smgy, Acute Bronchitis, Adult, Szsr-pu-Cosi, Otitis Media, Adult, [id number] Additional Instructions: Chest x-ray shows no acute cardiopulmonary abnormalities or pneumonitis. Your symptoms are due to acute upper respiratory infection, sinusitis, acute bronchitis and otitis media. Therefore take medication with food, drink plenty of fluids and follow-up with your primary care physician in 7 to 10 days for reevaluation. Return to the ED immediately if symptoms get worse. Prescriptions: Clindamycin [Clindamycin CAP] 300 mg PO Q8HR #60 capsule methylPREDNISolone [Medrol 4MG DOSEPAK (21 tabs)] 4 mg PO DAILY #21 tab.ds.pk Ibuprofen [Motrin] 800 mg PO Q8HR PRN #30 tablet PRN Reason: Pain , Severe (7-10) Benzonatate [Tessalon Perles] 100 mg PO Q8HR #30 capsule Ondansetron [Zofran Odt] 4 mg PO Q8HR PRN #15 tab.rapdis PRN Reason: Nausea Cetirizine HCl [Zyrtec 10mg tab] 10 mg PO DAILY #30 tablet Referrals: [facility] [Provider Group] - 7-10 days Time of Disposition: 01:45 Print Language: UGANDAN
== END 2021-01-22 02:10 | disposition home or self-care (01) ==
LOC: ED 23:32
DX: J06.9 Acute upper respiratory infection, unspecified (principal); J20.9 Acute bronchitis, unspecified; J01.00 Acute maxillary sinusitis, unspecified; H65.192 Other acute nonsuppurative otitis media, left ear; D64.9 Anemia, unspecified; I10 Essential (primary) hypertension; E66.9 Obesity, unspecified; K21.9 Gastro-esophageal reflux disease without esophagitis; J45.909 Unspecified asthma, uncomplicated; Z98.890 Other specified postprocedural states; Z98.51 Tubal ligation status; Z90.49 Acquired absence of other specified parts of digestive tract; Z79.899 Other long term (current) drug therapy; Z88.0 Allergy status to penicillin; Z68.39 Body mass index [BMI] 39.0-39.9, adult
CPT/HCPCS: 71046

== ENCOUNTER 2021-07-30 15:34 | Emergency (ER) | payer SELFPAY ==
--- NOTE | 2021-07-30 16:06 | Emergency Department Report ---
ED General Adult HPI - General Chief complaint: Chest Pain Stated complaint: CP/LIGHTHEADED/POSITIVE COVID TEST STEP 20TH Time Seen by Provider: 07/30/21 15:57 Source: patient Mode of arrival: Ambulatory Limitations: No Limitations - History of Present Illness Initial comments: Patient is a 51-year-old female presents emergency room with complaints of s ymptoms of COVID-19. She states that she tested positive for COVID-19 on 07/19/2021. She was not vaccinated for COVID-19. she states her doctor placed her on azithromycin and dexamethasone and albuterol inhaler. She states that for the last 4 days she has had left-sided chest pain under the left breast which feels like a pulling sensation her pain increases with movement. She states that she also has shortness of breath and pain with taking a deep breath and left calf pain. She denies any fever, nausea, vomiting, diaphoresis, hemoptysis. Past medical history of GERD, hypertension, anemia, asthma, vertigo. Allergy to amoxicillin. She states that she had a normal heart catheterization in 2019. She has never had a heart attack and has no stents. She states that her only family cardiac history is that her grandmother has CHF. Severity scale (0 -10): 8 - Related Data Home Medications Medication Instructions Recorded Confirmed Last Taken Aspirin [Adult Aspirin] 81 mg PO DAILY 10/08/19 01/05/20 Unknown Ferrous Sulfate [Ferrous Sulfate 325 mg PO BID 10/08/19 01/05/20 Unknown 324 MG] Ibuprofen [Motrin] 800 mg PO Q8HR PRN 10/08/19 01/05/20 Unknown AtorvaSTATin [Lipitor] 40 mg PO QHS 01/05/20 01/05/20 Unknown Ergocalciferol [Vitamin D2] 50,000 unit PO QWEEK 01/05/20 01/05/20 Unknown hydroCHLOROthiazide [HCTZ] 25 mg PO QDAY 01/05/20 01/05/20 Unknown Previous Rx's Medication Instructions Recorded Last Taken Type Cyclobenzaprine [Flexeril] 10 mg PO TID PRN #14 tablet 05/28/20 Unknown Rx Ibuprofen [Motrin 800 MG tab] 800 mg PO Q8HR PRN #20 tablet 05/28/20 Unknown Rx Benzonatate [Tessalon Perles] 100 mg PO Q8HR #30 capsule 01/22/21 Unknown Rx Cetirizine HCl [Zyrtec 10mg tab] 10 mg PO DAILY #30 tablet 01/22/21 Unknown Rx Clindamycin [Clindamycin CAP] 300 mg PO Q8HR #60 capsule 01/22/21 Unknown Rx Ibuprofen [Motrin] 800 mg PO Q8HR PRN #30 tablet 01/22/21 Unknown Rx Ondansetron [Zofran Odt] 4 mg PO Q8HR PRN #15 tab.rapdis 01/22/21 Unknown Rx methylPREDNISolone [Medrol 4MG 4 mg PO DAILY #21 tab.ds.pk 01/22/21 Unknown Rx DOSEPAK (21 tabs)] Allergies Allergy/AdvReac Type Severity Reaction Status Date / Time amoxicillin [Amoxicillin] Allergy Rash Verified 05/28/20 12:51 ED Review of Systems ROS: Stated complaint: CP/LIGHTHEADED/POSITIVE COVID TEST STEP 20TH Other details as noted in HPI Comment: All other systems reviewed and negative ED Past Medical Hx - Past Medical History Hx Hypertension: Yes (Pt states she no longer has HTN) Hx Heart Attack/AMI: No Hx Diabetes: No Hx GERD: Yes Hx Liver Disease: No Hx Renal Disease: No Hx Seizures: No Hx Asthma: Yes (Not treated in over 5 years) Hx COPD: No Hx Tuberculosis: No Additional medical history: anemia with hx. of blood transfusions, Vertigo. afib - Surgical History Hx Appendectomy: Yes Additional Surgical History: x 2, Right middle finger, D&C, Tubal Ligation. 3 lumbar epidurals. 2 cervical epidurals. Lt rotator cuff - Social History Smoking Status: Never Smoker Substance Use Type: Alcohol - Medications Home Medications: Home Medications Medication Instructions Recorded Confirmed Last Taken Type Aspirin [Adult Aspirin] 81 mg PO DAILY 10/08/19 01/05/20 Unknown History Ferrous Sulfate [Ferrous Sulfate 325 mg PO BID 10/08/19 01/05/20 Unknown History 324 MG] Ibuprofen [Motrin] 800 mg PO Q8HR PRN 10/08/19 01/05/20 Unknown History AtorvaSTATin [Lipitor] 40 mg PO QHS 01/05/20 01/05/20 Unknown History Ergocalciferol [Vitamin D2] 50,000 unit PO QWEEK 01/05/20 01/05/20 Unknown History hydroCHLOROthiazide [HCTZ] 25 mg PO QDAY 01/05/20 01/05/20 Unknown History Cyclobenzaprine [Flexeril] 10 mg PO TID PRN #14 tablet 05/28/20 Unknown Rx Ibuprofen [Motrin 800 MG tab] 800 mg PO Q8HR PRN #20 tablet 05/28/20 Unknown Rx Benzonatate [Tessalon Perles] 100 mg PO Q8HR #30 capsule 01/22/21 Unknown Rx Cetirizine HCl [Zyrtec 10mg tab] 10 mg PO DAILY #30 tablet 01/22/21 Unknown Rx Clindamycin [Clindamycin CAP] 300 mg PO Q8HR #60 capsule 01/22/21 Unknown Rx Ibuprofen [Motrin] 800 mg PO Q8HR PRN #30 tablet 01/22/21 Unknown Rx Ondansetron [Zofran Odt] 4 mg PO Q8HR PRN #15 tab.rapdis 01/22/21 Unknown Rx methylPREDNISolone [Medrol 4MG 4 mg PO DAILY #21 tab.ds.pk 01/22/21 Unknown Rx DOSEPAK (21 tabs)] ED Physical Exam - General Limitations: No Limitations General appearance: alert, in no apparent distress - Head Head exam: Present: atraumatic, normocephalic - Eye Eye exam: Present: normal appearance - ENT ENT exam: Present: mucous membranes moist - Respiratory Respiratory exam: Present: normal lung sounds bilaterally, chest wall tenderness (reproducible left anterior chest wall ttp, no crepitus, no deformity, no erythema, no edema). Absent: respiratory distress, wheezes, rales, rhonchi, stridor, accessory muscle use, decreased breath sounds, prolonged expiratory - Cardiovascular Cardiovascular Exam: Present: regular rate, normal rhythm, normal heart sounds. Absent: systolic murmur, diastolic murmur, rubs, gallop - Extremities Exam Extremities exam: Present: other (mild left calf ttp, no edema, no ecchymosis, no erythema, FROM of the LLE, neurovascularly intact) - Neurological Exam Neurological exam: Present: alert, oriented X3 - Psychiatric Psychiatric exam: Present: normal affect, normal mood - Skin Skin exam: Present: warm, dry, intact ED Course Vital Signs 07/30/21 07/30/21 07/30/21 15:43 16:08 20:44 Temperature 98.7 F 98.3 F Pulse Rate 96 H 95 H Respiratory 16 14 Rate Blood Pressure 157/77 Blood Pressure 158/88 157/77 142/72 [Right] O2 Sat by Pulse 100 100 Oximetry ED Medical Decision Making - Lab Data Result diagrams: 07/30/21 16:01 07/30/21 16:01 Lab Results 07/30/21 07/30/21 07/30/21 Range/Units 16:01 16:01 16:01 WBC 8.3 (4.5-11.0) K/mm3 RBC 5.08 H (3.65-5.03) M/mm3 Hgb 10.5 (10.1-14.3) gm/dl Hct 32.5 (30.3-42.9) % MCV 64 L (79-97) fl MCH 21 L (28-32) pg MCHC 32 (30-34) % RDW 20.5 H (13.2-15.2) % Plt Count 378 (140-440) K/mm3 Lymph % (Auto) 35.1 H (13.4-35.0) % [place] % (Auto) 8.0 H (0.0-7.3) % Eos % (Auto) 2.1 (0.0-4.3) % Baso % (Auto) 0.1 (0.0-1.8) % Lymph # (Auto) 2.9 (1.2-5.4) K/mm3 [place] # (Auto) 0.7 (0.0-0.8) K/mm3 Eos # (Auto) 0.2 (0.0-0.4) K/mm3 Baso # (Auto) 0.0 (0.0-0.1) K/mm3 Seg Neutrophils % 54.7 (40.0-70.0) % Seg Neutrophils # 4.6 (1.8-7.7) K/mm3 D-Dimer 408.05 H (0-234) ng/mlDDU Sodium 137 (137-145) mmol/L Potassium 3.5 L (3.6-5.0) mmol/L Chloride 100.5 (98-107) mmol/L Carbon Dioxide 26 (22-30) mmol/L Anion Gap 14 mmol/L BUN 11 (7-17) mg/dL Creatinine 0.7 (0.6-1.2) mg/dL Estimated GFR > 60 ml/min BUN/Creatinine Ratio 16 % Glucose 112 H (65-100) mg/dL Calcium 9.0 (8.4-10.2) mg/dL Total Bilirubin 0.40 (0.1-1.2) mg/dL AST 13 (5-40) units/L ALT 22 (7-56) units/L Alkaline Phosphatase 82 (35-129) units/L Troponin T < 0.010 (0.00-0.029) ng/mL NT-Pro-B Natriuret Pep (0-900) pg/mL Total Protein 7.2 (6.3-8.2) g/dL Albumin 3.7 L (3.9-5) g/dL Albumin/Globulin Ratio 1.1 % HCG, Qual (Negative) 07/30/21 07/30/21 Range/Units 16:01 16:01 WBC (4.5-11.0) K/mm3 RBC (3.65-5.03) M/mm3 Hgb (10.1-14.3) gm/dl Hct (30.3-42.9) % MCV (79-97) fl MCH (28-32) pg MCHC (30-34) % RDW (13.2-15.2) % Plt Count (140-440) K/mm3 Lymph % (Auto) (13.4-35.0) % [place] % (Auto) (0.0-7.3) % Eos % (Auto) (0.0-4.3) % Baso % (Auto) (0.0-1.8) % Lymph # (Auto) (1.2-5.4) K/mm3 [place] # (Auto) (0.0-0.8) K/mm3 Eos # (Auto) (0.0-0.4) K/mm3 Baso # (Auto) (0.0-0.1) K/mm3 Seg Neutrophils % (40.0-70.0) % Seg Neutrophils # (1.8-7.7) K/mm3 D-Dimer (0-234) ng/mlDDU Sodium (137-145) mmol/L Potassium (3.6-5.0) mmol/L Chloride (98-107) mmol/L Carbon Dioxide (22-30) mmol/L Anion Gap mmol/L BUN (7-17) mg/dL Creatinine (0.6-1.2) mg/dL Estimated GFR ml/min BUN/Creatinine Ratio % Glucose (65-100) mg/dL Calcium (8.4-10.2) mg/dL Total Bilirubin (0.1-1.2) mg/dL AST (5-40) units/L ALT (7-56) units/L Alkaline Phosphatase (35-129) units/L Troponin T (0.00-0.029) ng/mL NT-Pro-B Natriuret Pep 38.88 (0-900) pg/mL Total Protein (6.3-8.2) g/dL Albumin (3.9-5) g/dL Albumin/Globulin Ratio % HCG, Qual Negative (Negative) Vital Signs 07/30/21 07/30/21 07/30/21 15:43 16:08 20:44 Temperature 98.7 F 98.3 F Pulse Rate 96 H 95 H Respiratory 16 14 Rate Blood Pressure 157/77 Blood Pressure 158/88 157/77 142/72 [Right] O2 Sat by Pulse 100 100 Oximetry - EKG Data EKG shows normal: sinus rhythm, axis, intervals, QRS complexes, ST-T waves Rate: normal - Radiology Data Radiology results: report reviewed Ordering Physician: SIMRAN TRIMBLE Date of Service: 07/30/21 Procedure(s): CT angio chest Accession Number(s): [id number] cc: SIMRAN TRIMBLE CTA CHEST WITH CONTRAST INDICATION / CLINICAL INFORMATION: Cp, SOB, elevated d-dimer, COVID + 07/19/21. TECHNIQUE: Axial CT images were obtained through the chest after injection of 100 cc Omnipaque 350 IV contrast. 3 plane MIP and/or 3D reconstructions were produced. All CT scans at this location are performed using CT dose reduction for ALARA by means of automated exposure control. COMPARISON: 05/28/2020. Same day chest radiograph. FINDINGS: PULMONARY ARTERIES: No central or segmental pulmonary embolus. THORACIC AORTA: No significant abnormality. HEART: No significant abnormality. ADENOPATHY: No significant adenopathy. LUNGS/PLEURA: Multifocal nodular opacities with surrounding groundglass attenuation seen throughout the lungs, most pronounced in the right lower lobe. No pleural effusion. No pneumothorax. ADDITIONAL FINDINGS: None. UPPER ABDOMEN: No acute findings. SKELETAL STRUCTURES: No significant osseous abnormality. IMPRESSION: 1. No evidence for pulmonary embolism. 2. Mild multifocal nodular opacities throughout the lungs, most compatible with atypical pneumonia. Signer Name: Arslan Holden MD Signed: 07/30/2021 6:12 PM Workstation Name: [id number] Transcribed By: SHASHANK Dictated By: ARSLAN HOLDEN MD Electronically Authenticated By: ARSLAN HOLDEN MD Signed Date/Time: 07/30/211811 DD/ 180 TD/TT: Ordering Physician: SIMRAN TRIMBLE Date of Service: 07/30/21 Procedure(s): VL venous duplex LE LT Accession Number(s): [id number] cc: SIMRAN TRIMBLE DUPLEX DOPPLER LOWER EXTREMITY VEINS, LEFT INDICATION / CLINICAL INFORMATION: left calf pain. TECHNIQUE: Duplex doppler imaging was performed through the veins of the left lower extremity using venous compression and other maneuvers. COMPARISON: None available. FINDINGS: LEFT COMMON FEMORAL VEIN: Negative. LEFT FEMORAL VEIN: Negative. LEFT POPLITEAL VEIN: Negative. LEFT CALF VEINS: Negative. ADDITIONAL FINDINGS: None. IMPRESSION: 1. No sonographic evidence for DVT in the left lower extremity. Signer Name: Alex Magallon DO Signed: 07/30/2021 5:20 PM Workstation Name: [id number] Transcribed By: KIANNA Dictated By: ALEX MAGALLON DO Electronically Authenticated By: ALEX MAGALLON DO Signed Date/Time: 07/30/21 1720 DD/ 171 TD/TT: Ordering Physician: LIA MCGREGOR MD Date of Service: 01/22/21 Procedure(s): XR chest routine 2V Accession Number(s): [id number] cc: LIA MCGREGOR MD Fluoro Time In Minutes: CHEST PA AND LATERAL VIEWS INDICATION: cough. COMPARISON: 05/28/2020 FINDINGS: Support devices: None Heart: Normal and unchanged Lungs/Pleura: No acute pulmonary or pleural findings. IMPRESSION: 1. No active disease and no interval change. Signer Name: Armani Mueller MD Signed: 01/22/2021 12:53 AM Workstation Name: [id number] Transcribed By: TM Dictated By: Armani Mueller MD Electronically Authenticated By: Armani Mueller MD Signed Date/Time: 01/22/2152 DD/ TD/TT: - Medical Decision Making Patient is a 51-year-old female presents emergency room with complaints of symptoms of COVID-19. She states that she tested positive for COVID-19 on . She was not vaccinated for COVID-19. she states her doctor placed her on azithromycin and dexamethasone and albuterol inhaler. She states that for the last 4 days she has had left-sided chest pain under the left breast which feels like a pulling sensation her pain increases with movement. She states that she also has shortness of breath and pain with taking a deep breath and left calf pain. She denies any fever, nausea, vomiting, diaphoresis, hemoptysis. Past medical history of GERD, hypertension, anemia, asthma, vertigo. Allergy to amoxicillin. She states that she had a normal heart catheterization in 2019. She has never had a heart attack and has no stents. She states that her only family cardiac history is that her grandmother has CHF. vss. on exam: reproducible left anterior chest wall ttp, no crepitus, no deformity, no erythema, no edema, mild left calf ttp, no edema, no ecchymosis, no erythema, FROM of the LLE, neurovascularly intact. EKG is normal. labs with elevated d-dimer, troponin is negative. CT angio chest: 1. No evidence for pulmonary embolism. 2. Mild multifocal nodular opacities throughout the lungs, most compatible with atypical pneumonia. US LLE doppler: 1. No sonographic evidence for DVT in the left lower extremity. CXR: 1. No active disease and no interval change. Heart score is 2, low risk for cardiac event, patient had recent cardiac cath in 2019 which was within normal limits per patient. CT chest shows no signs of PE. CT findings likely consistent with COVID-19 pneumonia. Patient just recently completed a course of azithromycin and dexamethasone. Patient's vitals are stable, she has no hypoxia. Symptoms could be related to costochondritis versus pleuritis and likely discomfort from her COVID-19 pneumonia. Advised patient May continue to take your muscle relaxer as needed for pain. Increase your fluid intake. Follow-up with your primary care doctor. Return to emergency room immediately for any new or worsening symptoms. Recommend for you to get a pulse oximetry meter [id number] and to return to emergency room if your oxygen is less than 93%. Critical care attestation.: If time is entered above; I have spent that time in minutes in the direct care of this critically ill patient, excluding procedure time. ED Disposition Clinical Impression: Pneumonia due to COVID-19 virus Disposition: HOME / SELF CARE / HOMELESS Is pt being admited?: No Does the pt Need Aspirin: No Condition: Stable Instructions: COVID-19, Bacterial Pneumonia (ED) Additional Instructions: May continue to take your muscle relaxer as needed for pain. Increase your fluid intake. Follow-up with your primary care doctor. Return to emergency room immediately for any new or worsening symptoms. Recommend for you to get a pulse oximetry meter [id number] and to return to emergency room if your oxygen is less than 93%. Referrals: your, primary care doctor [Other] - 2-3 Days Forms: Work/School Release Form(ED) Time of Disposition: 18:52 Print Language: GEORGIAN HEART Score - HEART Score History: Slightly suspicious EKG: Normal Age: 45-65 Risk factors: 1-2 risk factors Troponin: Troponin T < 0.010 ng/mL (0.00-0.029) 07/30/21 16:01 Troponin: < normal limit HEART Score: 2
[2021-07-30 16:25] LABS: Basophils % (Auto) 0.1 % (0.0-1.8); Eosinophils # (Auto) 0.2 K/mm3 (0.0-0.4); Eosinophils % (Auto) 2.1 % (0.0-4.3); Hematocrit 32.5 % (30.3-42.9); Hemoglobin 10.5 gm/dl (10.1-14.3); Lymphocytes # (Auto) 2.9 K/mm3 (1.2-5.4); Lymphocytes % (Auto) 35.1 % (13.4-35.0); Mean Corpuscular HGB Conc 32 % (30-34); Mean Corpuscular Volume 64 fl (79-97); Monocytes # (Auto) 0.7 K/mm3 (0.0-0.8); Platelet Count 378 K/mm3 (140-440); Red Blood Count 5.08 M/mm3 (3.65-5.03); Red Cell Distribution Width 20.5 % (13.2-15.2)
--- NOTE | 2021-07-30 16:29 | XRay Report ---
CHEST 2 VIEWS INDICATION / CLINICAL INFORMATION: Chest Pain. COMPARISON: 03/24/2021 FINDINGS: SUPPORT DEVICES: None. HEART / MEDIASTINUM: No significant abnormality. LUNGS / PLEURA: No significant pulmonary or pleural abnormality. No pneumothorax. ADDITIONAL FINDINGS: No significant additional findings. IMPRESSION: 1. No acute findings. Signer Name: Alex Cross DO Signed: 07/30/2021 4:24 PM Workstation Name: [id number]
[2021-07-30 17:14] LABS: Alanine Aminotransferase 22 units/L (7-56); Albumin 3.7 g/dL (3.9-5); Blood Urea Nitrogen 11 mg/dL (7-17); Hemolysis Index 2
[2021-07-30 17:15] LABS: BUN/Creatinine Ratio 16
--- NOTE | 2021-07-30 17:24 | Vascular Lab Report ---
DUPLEX DOPPLER LOWER EXTREMITY VEINS, LEFT INDICATION / CLINICAL INFORMATION: left calf pain. TECHNIQUE: Duplex doppler imaging was performed through the veins of the left lower extremity using v enous compression and other maneuvers. COMPARISON: None available. FINDINGS: LEFT COMMON FEMORAL VEIN: Negative. LEFT FEMORAL VEIN: Negative. LEFT POPLITEAL VEIN: Negative. LEFT CALF VEINS: Negative. ADDITIONAL FINDINGS: None. IMPRESSION: 1. No sonographic evidence for DVT in the left lower extremity. Signer Name: Alex Cross DO Signed: 07/30/2021 5:20 PM Workstation Name: [id number]
--- NOTE | 2021-07-30 18:17 | Cat Scan Report ---
CTA CHEST WITH CONTRAST INDICATION / CLINICAL INFORMATION: Cp, SOB, elevated d-dimer, COVID + 07/19/21. TECHNIQUE: Axial CT images were obtained through the chest after injection of 100 cc Omnipaque 350 IV contrast. 3 plane MIP and/or 3D reconstructions were produced. All CT scans at this location are per formed using CT dose reduction for ALARA by means of automated exposure control. COMPARISON: 05/28/2020. Same day chest radiograph. FINDINGS: PULMONARY ARTERIES: No central or segmental pulmonary embolus. THORACIC AORTA: No significant abnormality. HEART: No significant abnormality. ADENOPATHY: No significant adenopathy. LUNGS/PLEURA: Multifocal nodular opacities with surrounding groundglass attenuation seen throughout t he lungs, most pronounced in the right lower lobe. No pleural effusion. No pneumothorax. ADDITIONAL FINDINGS: None. UPPER ABDOMEN: No acute findings. SKELETAL STRUCTURES: No significant osseous abnormality. IMPRESSION: 1. No evidence for pulmonary embolism. 2. Mild multifocal nodular opacities throughout the lungs, most compatible with atypical pneumonia. Signer Name: Ace Holden MD Signed: 07/30/2021 6:12 PM Workstation Name: [id number]
[2021-07-30 20:45] VITALS: BP 142/72
--- NOTE | 2021-08-02 11:10 | Electrocardiograph Report ---
[facility] Test Date: 2021-07-30 Test Time: 15:42:23 Pat Name: SÁNCHEZ RAWLS Department: Room: Gender: F Expediter: RADHA : 1970 Requested By: ED ORTIZ Order Number: [id number] Reading MD: Yaneth Wright Measurements Intervals [place] Rate: 96 P: 65 OK: 151 QRS: 18 QRSD: 81 T: 37 QT: 395 QTc: 500 Interpretive Statements Sinus rhythm Probable left atrial enlargement No previous ECG available for comparison Electronically Signed On 08-02-2021 11:10:19 EDT by Yaneth Wright
== END 2021-07-30 20:53 | disposition home or self-care (01) ==
LOC: ED 15:34
DX: U07.1 COVID-19 (principal); J12.82 Pneumonia due to coronavirus disease 2019; I10 Essential (primary) hypertension; K21.9 Gastro-esophageal reflux disease without esophagitis; Z98.890 Other specified postprocedural states; Z79.82 Long term (current) use of aspirin; Z88.1 Allergy status to other antibiotic agents; Z79.899 Other long term (current) drug therapy
CPT/HCPCS: 36415; 71046; 71275; 80053; 83880; 84484; 84703; 85025; 85379; 93005; 93971; 99284; Q9967

== ENCOUNTER 2022-02-09 05:45 | Emergency (ER) | payer SELFPAY ==
[2022-02-09 05:54] VITALS: BP 155/101
== END 2022-02-09 07:35 | disposition left against medical advice (07) ==
LOC: ED 05:45
DX: R06.2 Wheezing (principal); Z53.21 Procedure and treatment not carried out due to patient leaving prior to being seen by health care provider
CPT/HCPCS: 93005

== ENCOUNTER 2022-02-10 12:34 | Emergency (ER) | payer SELFPAY | END 2022-02-11 | disposition left against medical advice (07) | LOC: ED 12:34 | DX: M79.605 Pain in left leg (principal); Z53.21 Procedure and treatment not carried out due to patient leaving prior to being seen by health care provider ==

== ENCOUNTER 2022-02-13 08:25 | Emergency (ER) | payer OTHER ==
[2022-02-13 09:58] LABS: Basophils % (Auto) 0.7 % (0.0-1.8); Eosinophils # (Auto) 0.4 K/mm3 (0.0-0.4); Lymphocytes # (Auto) 2.9 K/mm3 (1.2-5.4); Lymphocytes % (Auto) 41.9 % (13.4-35.0); Mean Corpuscular HGB Conc 30 % (30-34); Monocytes # (Auto) 0.4 K/mm3 (0.0-0.8); Monocytes % (Auto) 5.9 % (0.0-7.3); Platelet Count 388 K/mm3 (140-440)
[2022-02-13 10:08] LABS: Hemoglobin 10.3 gm/dl (10.1-14.3)
[2022-02-13 10:09] LABS: Mean Corpuscular Volume 64 fl (79-97); Red Cell Distribution Width 21.9 % (13.2-15.2)
[2022-02-13 10:11] LABS: Alanine Aminotransferase 19 units/L (7-56); Albumin 4.3 g/dL (3.9-5); Blood Urea Nitrogen 10 mg/dL (7-17); Calcium 9.5 mg/dL (8.4-10.2); Hemolysis Index 1
--- NOTE | 2022-02-13 10:16 | Emergency Department Report ---
HPI - General Chief Complaint: Chest Pain Time Seen by Provider: 02/13/22 09:55 - HPI HPI: Room 4 The patient is a 51-year-old female present with a chief complaint of cough and chest pain. The patient states she has been dealing with a sinus infection for the past 2 weeks which also includes a cough has been occasionally productive of clear sputum. Patient denies history of fever and states she was not vaccinated against COVID. Patient states she had a COVID test performed 02/10/2022 which was negative. The patient states for the past 2 days she has had intermittent substernal chest pain described as aching/soreness in nature and last night intermittent pain in the right upper extremity. Patient admits to occasional shortness of breath and nausea but denies vomiting. Patient states she had a negative heart cath in 2019 ED Past Medical Hx - Past Medical History Previous Medical History?: Yes Hx Hypertension: Yes (Pt states she no longer has HTN) Hx GERD: Yes Hx Asthma: Yes (Not treated in over 5 years) Additional medical history: anemia with hx. of blood transfusions, Vertigo. afib - Surgical History Hx Appendectomy: Yes Additional Surgical History: x 2, Right middle finger, D&C, Tubal L igation. 3 lumbar epidurals. 2 cervical epidurals. Lt rotator cuff - Family History Family history: no significant - Social History Smoking Status: Never Smoker Substance Use Type: None (Denies illicit drug use), Alcohol (Rarely) - Medications Home Medications: Home Medications Medication Instructions Recorded Confirmed Last Taken Type Aspirin [Adult Aspirin] 81 mg PO DAILY 10/08/19 01/05/20 Unknown History Ferrous Sulfate [Ferrous Sulfate 325 mg PO BID 10/08/19 01/05/20 Unknown History 324 MG] Ibuprofen [Motrin] 800 mg PO Q8HR PRN 10/08/19 01/05/20 Unknown History AtorvaSTATin [Lipitor] 40 mg PO QHS 01/05/20 01/05/20 Unknown History Ergocalciferol [Vitamin D2] 50,000 unit PO QWEEK 01/05/20 01/05/20 Unknown History hydroCHLOROthiazide [HCTZ] 25 mg PO QDAY 01/05/20 01/05/20 Unknown History Cyclobenzaprine [Flexeril] 10 mg PO TID PRN #14 tablet 05/28/20 Unknown Rx Ibuprofen [Motrin 800 MG tab] 800 mg PO Q8HR PRN #20 tablet 05/28/20 Unknown Rx Benzonatate [Tessalon Perles] 100 mg PO Q8HR #30 capsule 01/22/21 Unknown Rx Cetirizine HCl [Zyrtec 10mg tab] 10 mg PO DAILY #30 tablet 01/22/21 Unknown Rx Clindamycin [Clindamycin CAP] 300 mg PO Q8HR #60 capsule 01/22/21 Unknown Rx Ibuprofen [Motrin] 800 mg PO Q8HR PRN #30 tablet 01/22/21 Unknown Rx Ondansetron [Zofran Odt] 4 mg PO Q8HR PRN #15 tab.rapdis 01/22/21 Unknown Rx methylPREDNISolone [Medrol 4MG 4 mg PO DAILY #21 tab.ds.pk 01/22/21 Unknown Rx DOSEPAK (21 tabs)] Albuterol Mdi (or & Nicu Only) 2 puff IH QID PRN #8.5 gram 02/13/22 Unknown Rx [ProAir HFA Inhaler] Azithromycin [Zithromax Z-DAVE] 0 mg PO DAILY #6 tab 02/13/22 Unknown Rx Benzonatate [Tessalon Perles] 100 mg PO Q8HR #30 cap 02/13/22 Unknown Rx HYDROcodone/APAP 5-325 [[place] 1 each PO Q6HR PRN #10 tablet 02/13/22 Unknown Rx 5/325] Prednisone [predniSONE 10 mg 10 mg PO .TAPER #1 02/13/22 Unknown Rx (6-Day Pack, 21 Tabs)] ED Review of Systems ROS: Stated complaint: CHEST PAIN/ARM PAIN Other details as noted in HPI Constitutional: denies: fever Eyes: denies: eye pain ENT: denies: throat pain Respiratory: cough, shortness of breath Cardiovascular: chest pain Endocrine: no symptoms reported Gastrointestinal: nausea. denies: vomiting Musculoskeletal: denies: back pain Neurological: denies: headache Physical Exam - Physical Exam Vital Signs: Vital Signs 02/13/22 02/13/22 02/13/22 08:35 09:54 10:00 Temperature 99.3 F Pulse Rate 89 73 Respiratory 20 19 Rate Blood Pressure 164/105 Blood Pressure 177/78 [Right] O2 Sat by Pulse 100 88 100 Oximetry 02/13/22 10:07 Temperature 98.3 F Pulse Rate 75 Respiratory 18 Rate Blood Pressure Blood Pressure [Right] O2 Sat by Pulse 100 Oximetry Physical Exam: GENERAL: The patient is well-developed well-nourished female lying on stretcher not appearing to be in acute distress. [] HEENT: Normocephalic. Atraumatic. Extraocular motions are intact. Patient has moist mucous membranes. NECK: Supple. Trachea midline CHEST/LUNGS: Clear to auscultation. There is no respiratory distress noted. HEART/CARDIOVASCULAR: Regular. There is no tachycardia. There is no gallop rub or murmur. ABDOMEN: Abdomen is soft, nontender. Patient has normal bowel sounds. There is no abdominal distention. SKIN: There is no rash. There is no edema. There is no diaphoresis. NEURO: The patient is awake, alert, and oriented. The patient is cooperative. The patient has no focal neurologic deficits. The patient has normal speech. GCS 15 MUSCULOSKELETAL: There is no evidence of acute injury. ED Course Vital Signs 02/13/22 02/13/22 02/13/22 08:35 09:54 10:00 Temperature 99.3 F Pulse Rate 89 73 Respiratory 20 19 Rate Blood Pressure 164/105 Blood Pressure 177/78 [Right] O2 Sat by Pulse 100 88 100 Oximetry 02/13/22 10:07 Temperature 98.3 F Pulse Rate 75 Respiratory 18 Rate Blood Pressure Blood Pressure [Right] O2 Sat by Pulse 100 Oximetry ED Medical Decision Making - Lab Data Result diagrams: 02/13/22 09:23 - EKG Data -: EKG Interpreted by Pa EKG shows normal: sinus rhythm, axis Rate: normal - EKG Data When compared to previous EKG there are: previous EKG unavailable Interpretation: other (No ischemic changes seen) - Radiology Data Radiology results: report reviewed (CT chest), image reviewed (CT chest) [facility] [address] [place] [address] Cat Scan Report Signed Patient: SÁNCHEZ RAWLS MR#: [id number] : 1970 Acct:[id number] Age/Sex: 51 / F ADM Date: 02/13/22 Loc: ED Attending Dr: Ordering Physician: KOMAL STREETER MD Date of Service: 02/13/22 Procedure(s): CT angio chest Accession Number(s): [id number] cc: KOMAL STREETER MD CTA CHEST WITH CONTRAST INDICATION / CLINICAL INFORMATION: Chest pain. TECHNIQUE: Axial CT images were obtained through the chest after injection of Omnipaque 350, 95 cc IV contrast. 3 plane MIP and/or 3D reconstructions were produced. All CT scans at this location are performed using CT dose reduction for ALARA by means of automated exposure control. COMPARISON: None available. FINDINGS: PULMONARY ARTERIES: No pulmonary emboli. THORACIC AORTA: No significant abnormality. HEART: No significant abnormality. CORONARY ARTERY CALCIFICATION: None. MEDIASTINUM / ROSENDA: No significant abnormality. PLEURA: No pleural effusion. No pneumothorax. LUNGS: No acute air space or interstitial disease. ADDITIONAL FINDINGS: None. UPPER ABDOMEN: No acute findings. SKELETAL STRUCTURES: No significant osseous abnormality. IMPRESSION: 1. No CT evidence for pulmonary embolism. 2. Negative for pneumonia. Signer Name: Gamaliel Stark MD Signed: 02/13/2022 1:58 PM Workstation Name: [email or web address] Transcribed By: ES Dictated By: Gamaliel Stark MD Electronically Authenticated By: Gamaliel Stark MD Signed Date/Time: 02/13/221357 DD/ 1354 TD/TT: Print Cancel - Differential Diagnosis Costochondritis, pneumonia, bronchitis, ACS, PE Critical care attestation.: If time is entered above; I have spent that time in minutes in the direct care of this critically ill patient, excluding procedure time. ED Disposition Clinical Impression: Atypical chest pain, Cough Disposition: 01 HOME / SELF CARE / HOMELESS Is pt being admited?: No Does the pt Need Aspirin: No Condition: Stable Instructions: Nonspecific Chest Pain, Adult Additional Instructions: Return to the emergency department should you develop worsening symptoms, inability to tolerate food or liquids, high fever or any other concerns Prescriptions: HYDROcodone/APAP 5-325 [[place] 5/325] 1 each PO Q6HR PRN #10 tablet PRN Reason: Pain Prednisone [predniSONE 10 mg (6-Day Pack, 21 Tabs)] 10 mg PO .TAPER #1 Albuterol Mdi (or & Nicu Only) [ProAir HFA Inhaler] 2 puff IH QID PRN #8.5 gram PRN Reason: Shortness Of Breath Benzonatate [Tessalon Perles] 100 mg PO Q8HR #30 cap Azithromycin [Zithromax Z-DAVE] 0 mg PO DAILY #6 tab Referrals: PRIMARY CARE, [Primary Care Provider] - 3-5 Days [facility] [Provider Group] - 3-5 Days Time of Disposition: 14:12
[2022-02-13 10:21] LABS: BUN/Creatinine Ratio 17
[2022-02-13 10:39] LABS: Creatine Kinase MB < 1.0 ng/mL (0.0-4.0)
[2022-02-13 11:05] LABS: Bilirubin,Urine NEG (Negative); Blood,Urine NEG (Negative); Color,Urine Yellow (Yellow); Mucus,Urine FEW /HPF; Protein,Urine <15 mg/dL mg/dL (Negative); Urobilinogen,Urine < 2.0 mg/dL (<2.0)
--- NOTE | 2022-02-13 14:03 | Cat Scan Report ---
CTA CHEST WITH CONTRAST INDICATION / CLINICAL INFORMATION: Chest pain. TECHNIQUE: Axial CT images were obtained through the chest after injection of Omnipaque 350, 95 cc IV contrast. 3 plane MIP and/or 3D reconstructions were produced. All CT scans at this location are per formed using CT dose reduction for ALARA by means of automated exposure control. COMPARISON: None available. FINDINGS: PULMONARY ARTERIES: No pulmonary emboli. THORACIC AORTA: No significant abnormality. HEART: No significant abnormality. CORONARY ARTERY CALCIFICATION: None. MEDIASTINUM / ROSENDA: No significant abnormality. PLEURA: No pleural effusion. No pneumothorax. LUNGS: No acute air space or interstitial disease. ADDITIONAL FINDINGS: None. UPPER ABDOMEN: No acute findings. SKELETAL STRUCTURES: No significant osseous abnormality. IMPRESSION: 1. No CT evidence for pulmonary embolism. 2. Negative for pneumonia. Signer Name: Gamaliel Stark MD Signed: 02/13/2022 1:58 PM Workstation Name: [email or web address]
[2022-02-13 14:46] VITALS: BP 144/74
--- NOTE | 2022-02-14 11:29 | Electrocardiograph Report ---
[facility] Test Date: 2022-02-13 Test Time: 09:00:00 Pat Name: SÁNCHEZ RAWLS Department: Room: Gender: F Sales Representatives: SHEFALI : 1970 Requested By: KOMAL STREETER Order Number: [id number] Reading MD: Aly Gaspar Measurements Intervals [place] Rate: 76 P: 43 SD: 153 QRS: 46 QRSD: 91 T: 55 QT: 406 QTc: 457 Interpretive Statements Sinus rhythm Compared to ECG 02/09/2022 06:13:11 No significant changes Electronically Signed On 02-14-2022 11:28:54 EDT by Aly Gaspar
== END 2022-02-13 15:14 | disposition home or self-care (01) ==
LOC: ED 08:25
DX: R07.89 Other chest pain (principal); R05.9 Cough, unspecified
CPT/HCPCS: 36415; 71275; 80053; 81001; 82550; 82553; 83690; 84484; 85025; 85379; 87086; 93005; 99284; Q9967

== ENCOUNTER 2022-05-04 08:15 | Emergency (ER) | payer OTHER ==
[2022-05-04] MEDS ORDERED: ASPIRIN 325 MG TAB PO ONE (08:29)
--- NOTE | 2022-05-04 09:08 | XRay Report ---
CHEST 2 VIEWS INDICATION / CLINICAL INFORMATION: chest pain. COMPARISON: 07/30/2021 FINDINGS: SUPPORT DEVICES: None. HEART / MEDIASTINUM: No significant abnormality. LUNGS / PLEURA: No significant pulmonary or pleural abnormality. No pneumothorax. ADDITIONAL FINDINGS: No significant additional findings. IMPRESSION: 1. No acute findings. Signer Name: Waqas Moss Jr, MD Signed: 05/04/2022 9:04 AM Workstation Name: [id number]
[2022-05-04] MEDS ORDERED: ASPIRIN 81 MG TAB CHEW ONE (10:47)
--- NOTE | 2022-05-04 11:36 | Vascular Lab Report ---
VL venous duplex LE BILAT INDICATION / CLINICAL INFORMATION: pain/swelling. TECHNIQUE: Duplex doppler imaging was performed using venous compression and other maneuvers. COMPARISON: None available. FINDINGS: No venous thrombosis is identified within the visualized extremity vasculature. ADDITIONAL FINDINGS: None. IMPRESSION: 1. No sonographic evidence for DVT in the visualized bilateral lower extremity vasculature. Signer Name: Hugo Duckworth MD Signed: 05/04/2022 11:32 AM Workstation Name: [id number]
--- NOTE | 2022-05-04 11:42 | Emergency Department Report ---
ED General Adult HPI - General Chief complaint: Chest Pain Stated complaint: CHEST PAIN/ASTHMA Time Seen by Provider: 05/04/22 10:06 Source: patient Mode of arrival: Ambulatory Limitations: No Limitations - History of Present Illness Initial comments: Patient presents to the emergency department chief complaint of chest pain that started 2 days ago. Patient states the pain is located in the center of her chest and radiates to the right side. Pain is described as being sharp in nature. Patient also complains of right leg pain that she is seeing orthopedics for. Patient had trauma to that leg a couple weeks ago and now has significant tenderness of the right calf. Patient denies shortness of breath -: Sudden Location: chest, lower extremity Radiation: other (Right chest) Severity scale (0 -10): 7 Quality: sharp Consistency: constant Improves with: none Worsens with: none Associated Symptoms: denies other symptoms Treatments Prior to Arrival: none - Related Data Home Medications Medication Instructions Recorded Confirmed Last Taken Aspirin [Adult Aspirin] 81 mg PO DAILY 10/08/19 01/05/20 Unknown Ferrous Sulfate [Ferrous Sulfate 325 mg PO BID 10/08/19 01/05/20 Unknown 324 MG] Ibuprofen [Motrin] 800 mg PO Q8HR PRN 10/08/19 01/05/20 Unknown AtorvaSTATin [Lipitor] 40 mg PO QHS 01/05/20 01/05/20 Unknown Ergocalciferol [Vitamin D2] 50,000 unit PO QWEEK 01/05/20 01/05/20 Unknown hydroCHLOROthiazide [HCTZ] 25 mg PO QDAY 01/05/20 01/05/20 Unknown Previous Rx's Medication Instructions Recorded Last Taken Type Cyclobenzaprine [Flexeril] 10 mg PO TID PRN #14 tablet 05/28/20 Unknown Rx Ibuprofen [Motrin 800 MG tab] 800 mg PO Q8HR PRN #20 tablet 05/28/20 Unknown Rx Benzonatate [Tessalon Perles] 100 mg PO Q8HR #30 capsule 01/22/21 Unknown Rx Cetirizine HCl [Zyrtec 10mg tab] 10 mg PO DAILY #30 tablet 01/22/21 Unknown Rx Clindamycin [Clindamycin CAP] 300 mg PO Q8HR #60 capsule 01/22/21 Unknown Rx Ibuprofen [Motrin] 800 mg PO Q8HR PRN #30 tablet 01/22/21 Unknown Rx Ondansetron [Zofran Odt] 4 mg PO Q8HR PRN #15 tab.rapdis 01/22/21 Unknown Rx methylPREDNISolone [Medrol 4MG 4 mg PO DAILY #21 tab.ds.pk 01/22/21 Unknown Rx DOSEPAK (21 tabs)] Albuterol Mdi (or & Nicu Only) 2 puff IH QID PRN #8.5 gram 02/13/22 Unknown Rx [ProAir HFA Inhaler] Azithromycin [Zithromax Z-DAVE] 0 mg PO DAILY #6 tab 02/13/22 Unknown Rx Benzonatate [Tessalon Perles] 100 mg PO Q8HR #30 cap 02/13/22 Unknown Rx HYDROcodone/APAP 5-325 [[place] 1 each PO Q6HR PRN #10 tablet 02/13/22 Unknown Rx 5/325] Prednisone [predniSONE 10 mg 10 mg PO .TAPER #1 02/13/22 Unknown Rx (6-Day Pack, 21 Tabs)] Ibuprofen [Motrin] 800 mg PO Q8HR PRN #30 tablet 05/04/22 Unknown Rx Allergies Allergy/AdvReac Type Severity Reaction Status Date / Time amoxicillin [Amoxicillin] Allergy Rash Verified 02/09/22 05:48 ED Review of Systems ROS: Stated complaint: CHEST PAIN/ASTHMA Other details as noted in HPI Comment: All other systems reviewed and negative Constitutional: denies: chills, fever Eyes: denies: eye pain, eye discharge, vision change ENT: denies: ear pain, throat pain Respiratory: denies: cough, shortness of breath, wheezing Cardiovascular: chest pain. denies: palpitations Endocrine: no symptoms reported Gastrointestinal: denies: abdominal pain, nausea, diarrhea Genitourinary: denies: urgency, dysuria, discharge Musculoskeletal: other (Bilateral leg pain). denies: back pain, joint swelling, arthralgia Skin: denies: rash, lesions Neurological: denies: headache, weakness, paresthesias Psychiatric: denies: anxiety, depression Hematological/Lymphatic: denies: easy bleeding, easy bruising ED Past Medical Hx - Past Medical History Hx Hypertension: Yes (Pt states she no longer has HTN) Hx Heart Attack/AMI: No Hx Diabetes: No Hx GERD: Yes Hx Liver Disease: No Hx Renal Disease: No Hx Seizures: No Hx Asthma: Yes (Not treated in over 5 years) Hx COPD: No Hx Tuberculosis: No Additional medical history: anemia with hx. of blood transfusions, Vertigo. afib - Surgical History Hx Appendectomy: Yes Additional Surgical History: x 2, Right middle finger, D&C, Tubal L igation. 3 lumbar epidurals. 2 cervical epidurals. Lt rotator cuff - Social History Smoking Status: Never Smoker Substance Use Type: None - Medications Home Medications: Home Medications Medication Instructions Recorded Confirmed Last Taken Type Aspirin [Adult Aspirin] 81 mg PO DAILY 10/08/19 01/05/20 Unknown History Ferrous Sulfate [Ferrous Sulfate 325 mg PO BID 10/08/19 01/05/20 Unknown History 324 MG] Ibuprofen [Motrin] 800 mg PO Q8HR PRN 10/08/19 01/05/20 Unknown History AtorvaSTATin [Lipitor] 40 mg PO QHS 01/05/20 01/05/20 Unknown History Ergocalciferol [Vitamin D2] 50,000 unit PO QWEEK 01/05/20 01/05/20 Unknown History hydroCHLOROthiazide [HCTZ] 25 mg PO QDAY 01/05/20 01/05/20 Unknown History Cyclobenzaprine [Flexeril] 10 mg PO TID PRN #14 tablet 05/28/20 Unknown Rx Ibuprofen [Motrin 800 MG tab] 800 mg PO Q8HR PRN #20 tablet 05/28/20 Unknown Rx Benzonatate [Tessalon Perles] 100 mg PO Q8HR #30 capsule 01/22/21 Unknown Rx Cetirizine HCl [Zyrtec 10mg tab] 10 mg PO DAILY #30 tablet 01/22/21 Unknown Rx Clindamycin [Clindamycin CAP] 300 mg PO Q8HR #60 capsule 01/22/21 Unknown Rx Ibuprofen [Motrin] 800 mg PO Q8HR PRN #30 tablet 01/22/21 Unknown Rx Ondansetron [Zofran Odt] 4 mg PO Q8HR PRN #15 tab.rapdis 01/22/21 Unknown Rx methylPREDNISolone [Medrol 4MG 4 mg PO DAILY #21 tab.ds.pk 01/22/21 Unknown Rx DOSEPAK (21 tabs)] Albuterol Mdi (or & Nicu Only) 2 puff IH QID PRN #8.5 gram 02/13/22 Unknown Rx [ProAir HFA Inhaler] Azithromycin [Zithromax Z-DAVE] 0 mg PO DAILY #6 tab 02/13/22 Unknown Rx Benzonatate [Tessalon Perles] 100 mg PO Q8HR #30 cap 02/13/22 Unknown Rx HYDROcodone/APAP 5-325 [[place] 1 each PO Q6HR PRN #10 tablet 02/13/22 Unknown Rx 5/325] Prednisone [predniSONE 10 mg 10 mg PO .TAPER #1 02/13/22 Unknown Rx (6-Day Pack, 21 Tabs)] Ibuprofen [Motrin] 800 mg PO Q8HR PRN #30 tablet 05/04/22 Unknown Rx ED Physical Exam - General Limitations: No Limitations General appearance: alert, in no apparent distress - Head Head exam: Present: atraumatic, normocephalic - Eye Eye exam: Present: normal appearance, PERRL, EOMI - ENT ENT exam: Present: mucous membranes moist - Neck Neck exam: Present: normal inspection - Respiratory Respiratory exam: Present: normal lung sounds bilaterally. Absent: respiratory distress - Cardiovascular Cardiovascular Exam: Present: regular rate, normal rhythm. Absent: systolic murmur, diastolic murmur, rubs, gallop - GI/Abdominal GI/Abdominal exam: Present: soft, normal bowel sounds. Absent: distended, tenderness - Extremities Exam Extremities exam: Present: other (Patient has tenderness to palpation posterior aspect of the right lower extremity with a hematoma just distal to the popliteal fossa right side. Patient also has tenderness palpation of the soleus muscle left side) - Back Exam Back exam: Present: normal inspection - Neurological Exam Neurological exam: Present: alert, oriented X3, CN II-XII intact. Absent: motor sensory deficit - Psychiatric Psychiatric exam: Present: normal affect, normal mood - Skin Skin exam: Present: warm, dry, intact, normal color. Absent: rash ED Course Vital Signs 05/04/22 05/04/22 05/04/22 08:26 08:31 10:24 Temperature 98 F Pulse Rate 78 Respiratory 16 Rate Blood Pressure 163/75 [Left] O2 Sat by Pulse 100 100 Oximetry 05/04/22 13:31 Temperature 98.2 F Pulse Rate 90 Respiratory 18 Rate Blood Pressure 128/70 [Left] O2 Sat by Pulse 100 Oximetry ED Medical Decision Making - Lab Data Result diagrams: 05/04/22 08:58 05/04/22 08:58 Lab Results 05/04/22 05/04/22 05/04/22 Range/Units 08:58 08:58 10:53 WBC 6.7 (4.5-11.0) K/mm3 RBC 4.55 (3.65-5.03) M/mm3 Hgb 9.0 L (10.1-14.3) gm/dl Hct 29.1 L (30.3-42.9) % MCV 64 L (79-97) fl MCH 20 L (28-32) pg MCHC 31 (30-34) % RDW 21.7 H (13.2-15.2) % Plt Count 376 (140-440) K/mm3 Lymph % (Auto) 44.4 H (13.4-35.0) % [place] % (Auto) 9.0 H (0.0-7.3) % Eos % (Auto) 5.6 H (0.0-4.3) % Baso % (Auto) 1.0 (0.0-1.8) % Lymph # (Auto) 3.0 (1.2-5.4) K/mm3 [place] # (Auto) 0.6 (0.0-0.8) K/mm3 Eos # (Auto) 0.4 (0.0-0.4) K/mm3 Baso # (Auto) 0.1 (0.0-0.1) K/mm3 Seg Neutrophils % 40.0 (40.0-70.0) % Seg Neutrophils # 2.7 (1.8-7.7) K/mm3 D-Dimer (0-234) ng/mlDDU Sodium 139 (137-145) mmol/L Potassium 3.6 (3.6-5.0) mmol/L Chloride 102.9 (98-107) mmol/L Carbon Dioxide 24 (22-30) mmol/L Anion Gap 16 mmol/L BUN 11 (7-17) mg/dL Creatinine 0.6 (0.6-1.2) mg/dL Estimated GFR > 60 ml/min BUN/Creatinine Ratio 18 % Glucose 87 (65-100) mg/dL Calcium 9.0 (8.4-10.2) mg/dL Total Bilirubin 0.20 (0.1-1.2) mg/dL AST 21 (5-40) units/L ALT 16 (7-56) units/L Alkaline Phosphatase 88 (35-129) units/L Troponin T < 0.010 < 0.010 (0.00-0.029) ng/mL Total Protein 7.5 (6.3-8.2) g/dL Albumin 4.1 (3.9-5) g/dL Albumin/Globulin Ratio 1.2 % 05/04/22 Range/Units 10:53 WBC (4.5-11.0) K/mm3 RBC (3.65-5.03) M/mm3 Hgb (10.1-14.3) gm/dl Hct (30.3-42.9) % MCV (79-97) fl MCH (28-32) pg MCHC (30-34) % RDW (13.2-15.2) % Plt Count (140-440) K/mm3 Lymph % (Auto) (13.4-35.0) % [place] % (Auto) (0.0-7.3) % Eos % (Auto) (0.0-4.3) % Baso % (Auto) (0.0-1.8) % Lymph # (Auto) (1.2-5.4) K/mm3 [place] # (Auto) (0.0-0.8) K/mm3 Eos # (Auto) (0.0-0.4) K/mm3 Baso # (Auto) (0.0-0.1) K/mm3 Seg Neutrophils % (40.0-70.0) % Seg Neutrophils # (1.8-7.7) K/mm3 D-Dimer 393.60 H (0-234) ng/mlDDU Sodium (137-145) mmol/L Potassium (3.6-5.0) mmol/L Chloride (98-107) mmol/L Carbon Dioxide (22-30) mmol/L Anion Gap mmol/L BUN (7-17) mg/dL Creatinine (0.6-1.2) mg/dL Estimated GFR ml/min BUN/Creatinine Ratio % Glucose (65-100) mg/dL Calcium (8.4-10.2) mg/dL Total Bilirubin (0.1-1.2) mg/dL AST (5-40) units/L ALT (7-56) units/L Alkaline Phosphatase (35-129) units/L Troponin T (0.00-0.029) ng/mL Total Protein (6.3-8.2) g/dL Albumin (3.9-5) g/dL Albumin/Globulin Ratio % - EKG Data -: EKG Interpreted by Me EKG shows normal: sinus rhythm Rate: normal - Radiology Data Radiology results: report reviewed - Medical Decision Making Results discussed with patient Critical care attestation.: If time is entered above; I have spent that time in minutes in the direct care of this critically ill patient, excluding procedure time. ED Disposition Clinical Impression: Chest pain, non-cardiac, Chest wall pain Disposition: 01 HOME / SELF CARE / HOMELESS Is pt being admited?: No Does the pt Need Aspirin: No Condition: Stable Instructions: Nonspecific Chest Pain, Adult, Chest Wall Pain Additional Instructions: return if worse Referrals: PRIMARY CAREMD [Primary Care Provider] - 3-5 Days KEN LACEY MD [Staff Physician] - 3-5 Days Time of Disposition: 14:40
[2022-05-04 12:07] LABS: Basophils # (Auto) 0.1 K/mm3 (0.0-0.1); Eosinophils # (Auto) 0.4 K/mm3 (0.0-0.4); Eosinophils % (Auto) 5.6 % (0.0-4.3); Hematocrit 29.1 % (30.3-42.9); Lymphocytes % (Auto) 44.4 % (13.4-35.0); Mean Corpuscular HGB Conc 31 % (30-34); Monocytes # (Auto) 0.6 K/mm3 (0.0-0.8); Platelet Count 376 K/mm3 (140-440); Red Blood Count 4.55 M/mm3 (3.65-5.03)
[2022-05-04 12:09] LABS: Alanine Aminotransferase 16 units/L (7-56); Albumin 4.1 g/dL (3.9-5); Blood Urea Nitrogen 11 mg/dL (7-17); Hemolysis Index 11
[2022-05-04 12:10] LABS: Mean Corpuscular Volume 64 fl (79-97); Red Cell Distribution Width 21.7 % (13.2-15.2)
[2022-05-04 12:12] LABS: BUN/Creatinine Ratio 18
[2022-05-04 13:31] VITALS: BP 128/70
--- NOTE | 2022-05-04 14:32 | Cat Scan Report ---
CT angio chest INDICATION / CLINICAL INFORMATION: elevate ddimer with chest pain. TECHNIQUE: Axial CT images were obtained through the chest after injection of IV contrast. 3 plane MIP and/or 3D reconstructions were produced. All CT scans at this location are performed using CT dose reduction f or ALARA by means of automated exposure control. COMPARISON: None available. FINDINGS: PULMONARY ARTERIES: No pulmonary emboli. HEART: No significant abnormality identified. No significant coronary atherosclerotic calcifications. MEDIASTINUM / ROSENDA: No significant abnormality. LUNGS: Lungs are clear No pleural effusion. No pneumothorax. AORTA: No significant atherosclerosis. No aneurysm. ADDITIONAL FINDINGS: Small sliding-type hiatal hernia. UPPER ABDOMEN: No acute findings. SKELETAL STRUCTURES: No significant osseous abnormality. IMPRESSION: 1. No CT evidence for pulmonary embolism. 2. No acute findings. Signer Name: Hugo Duckworth MD Signed: 05/04/2022 2:28 PM Workstation Name: [id number]
--- NOTE | 2022-05-05 17:45 | Electrocardiograph Report ---
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
== END 2022-05-04 15:12 | disposition home or self-care (01) ==
LOC: ED 08:15
DX: R07.9 Chest pain, unspecified (principal); Z88.0 Allergy status to penicillin; J45.909 Unspecified asthma, uncomplicated; Z90.89 Acquired absence of other organs
CPT/HCPCS: 36415; 71046; 71275; 80053; 84484; 85025; 85379; 93005; 93970; 99284; Q9967

== ENCOUNTER 2022-06-25 02:32 | Emergency (ER) | payer OTHER ==
[2022-06-25 02:50] VITALS: BP 167/84
--- NOTE | 2022-06-25 03:30 | XRay Report ---
CHEST 2 VIEWS INDICATION / CLINICAL INFORMATION: Dyspnea. FINDINGS: SUPPORT DEVICES: None. HEART / MEDIASTINUM: No significant abnormality. LUNGS / PLEURA: No significant pulmonary or pleural abnormality. No pneumothorax. ADDITIONAL FINDINGS: No significant additional findings. IMPRESSION: 1. No acute findings. Signer Name: Arnol Reaves MD Signed: 06/25/2022 3:26 AM Workstation Name: [id number]
[2022-06-25 04:56] LABS: Basophils % (Auto) 0.4 % (0.0-1.8); Eosinophils # (Auto) 0.3 K/mm3 (0.0-0.4); Eosinophils % (Auto) 4.7 % (0.0-4.3); Hematocrit 30.5 % (30.3-42.9); Hemoglobin 9.4 gm/dl (10.1-14.3); Lymphocytes # (Auto) 2.6 K/mm3 (1.2-5.4); Lymphocytes % (Auto) 35.8 % (13.4-35.0); Mean Corpuscular HGB Conc 31 % (30-34); Monocytes # (Auto) 0.6 K/mm3 (0.0-0.8); Monocytes % (Auto) 8.6 % (0.0-7.3); Platelet Count 345 K/mm3 (140-440); Red Blood Count 4.85 M/mm3 (3.65-5.03)
[2022-06-25 04:57] LABS: Mean Corpuscular Volume 63 fl (79-97)
[2022-06-25 04:58] LABS: Alanine Aminotransferase 18 units/L (7-56); Albumin 4.5 g/dL (3.9-5); Blood Urea Nitrogen 11 mg/dL (7-17); Calcium 9.4 mg/dL (8.4-10.2); Hemolysis Index 4
[2022-06-25 05:02] LABS: BUN/Creatinine Ratio 18
[2022-06-25 05:19] LABS: Color,Urine Colorless (Yellow)
[2022-06-25 05:24] LABS: Amphetamine Screen,Urine Negative; Benzodiazepines Screen,Urine Negative; Cannabinoid Screen,Urine Negative; Cocaine Screen,Urine Negative; Methadone Screen,Urine Negative; Opiate Screen,Urine Negative
[2022-06-25 05:27] LABS: Bacteria,Urine 1+ /HPF (Negative); Mucus,Urine FEW /HPF; RBC,Urine < 1.0 /HPF (0.0-6.0)
--- NOTE | 2022-06-25 09:51 | Electrocardiograph Report ---
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
== END 2022-06-25 18:18 | disposition left against medical advice (07) ==
LOC: ED 02:32
DX: R07.89 Other chest pain (principal); R06.02 Shortness of breath; Z53.21 Procedure and treatment not carried out due to patient leaving prior to being seen by health care provider; Z79.899 Other long term (current) drug therapy
CPT/HCPCS: 36415; 71046; 80053; 80307; 81001; 85025; 93005